=== PATIENT | male | born 1960 | race Caucasian/White ===

== ENCOUNTER → 2016-06-21 | Outpatient (CLI) | payer OTHER ==
[~2016-06-21] MED LIST: ACYC400T PO; LIOT5TAB9 PO
--- NOTE | 2016-06-23 10:47 | DI ---
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 Iterative Reconstruction dose reducing technique was utilized. FINDINGS: The ventricles are of normal size, shape, and contour for the patient's age. There are scattered areas of low attenuation in the white matter which most likely represent changes from chronic microvascular ischemia. The brainstem, cerebellum, and cerebral hemispheres otherwise have a normal morphology and CT attenuation. There is no evidence of midline displacement. No hemorrhage, signs of acute territorial stroke, mass effect, mass lesions, or edema is evident. Stable subcutaneous masses in the left occipital region. The visualized portions of the skull base, midface, and calvarium demonstrate no acute abnormality. The paranasal sinuses are well aerated and free of significant disease. The tympanic and mastoid cavities appear normal. IMPRESSION: No evidence of intracranial metastatic disease. No interval change. CT neck, chest, abdomen and pelvis without: Comparison: CT neck, chest, abdomen and pelvis dated March 27, 2016 Technique: Axial CT images were performed through the neck, chest, abdomen and pelvis without intravenous contrast. Coronal and sagittal two-dimensional reformats. Automated Exposure Control and Iterative Reconstruction dose reducing techniques were utilized. Findings: Neck: Stable subcutaneous masses in the left occipital region, the largest on image #273 measures 2.8 cm in length. Right cervical adenopathy is stable with a patient registration representative node on image #248 measuring 2.1 cm in short axis compared to 2.2 cm previously. Additional scattered bilateral cervical nodes are grossly stable. Large right submandibular area mass is similar in appearance on axial image #245 measuring 2.1 cm in short axis. Left supraclavicular adenopathy is improved with a patient registration representative node on image #221 now measuring 1.3 cm in short axis dimension compared to 2.2 cm. No definite new or enlarging adenopathy. No mucosal based mass lesions. Chest: The lungs are stable with areas of linear atelectasis and scarring. No consolidative pneumonia, pleural effusion or pneumothorax. No new pulmonary nodules or masses. The central airways are patent. No axillary adenopathy. Stable paratracheal and right hilar adenopathy is stable posterior mediastinal adenopathy. Heart size is stable. No pericardial effusion. Abdomen/pelvis: Worsening in retroperitoneal adenopathy with the largest node on axial image #133 measuring 3.8 cm in short axis compared to 2.6 cm. Additional patient registration representative node on image #119 and the left retroperitoneum measures 2.6 cm in short axis, stable from the prior. The unenhanced contours of the liver, gallbladder, spleen, pancreas, adrenal glands and kidneys are stable. Overall stable mesenteric lymphadenopathy. The largest node on axial image #84 measures 4.2 x 3.3 cm compared to 4.3 x 3.3 cm on the prior exam. There is evidence of a lesion within the small bowel seen on axial image 113 involving a segment of approximately seven cm in length without causing obstruction. This is new from the prior exam. Largest node at the aortic bifurcation has increased in size on axial image #993 measuring 3.9 x 5.1 cm, this is increased from 4.5 x 3.2 cm. Bladder is normal. Prostate and rectum are unremarkable. Colon is decompressed. No evidence of a bowel obstruction. There is an additional new area of small bowel lymphomatous involvement seen in the left abdomen best seen on coronal image #43. This involves a segment of over 5 cm in length without obstruction. Bone windows are stable without lytic or blastic osseous lesion. Impression: 1. Worsening disease status in the abdomen with enlarging retroperitoneal adenopathy and new areas of small bowel involvement. 2. Overall stable disease in the chest and neck. .
== END ==
LOC: IMA 15:14
PROVIDERS: ATTEND Internal Medicine Hematology & Oncology
DX: C82.08 Follicular lymphoma grade I, lymph nodes of multiple sites (principal); D83.0 Common variable immunodeficiency with predominant abnormalities of B-cell numbers and function

== ENCOUNTER 2016-08-10 11:44 | Inpatient (IN) | payer OTHER ==
[~2016-08-10] VITALS: Ht 172.7 cm; Wt 95.6 kg
--- OUTSIDE RECORDS SUMMARY | 2016-08-10 11:48 | XMS REPORT | Continuity of Care Document ---
Author Author [facility] Organization [facility] Address Unknown Phone Unavailable Support Name Relationship Address Phone KEVIN HARP Caregiver [address] [place] & [place] [address] Unavailable RHODA TAPIA Caregiver [phone] [place] [address] Unavailable MYLENERegina RAFIA Nicky Next Of Kin [address] [place] [address] Insurance Providers Guarantor Sukhwinder Brown Address [address] [address] Email [email or web address] Payer [facility] Healthcare Policy Number [id number] Subscriber's Name JovanySukhwinder conrad Sacha Relationship 18 Self Group Number [id number] Problems Active Problems Medical Problem Onset Date Status Abdominal pain Unknown Acute Bacteremia associated with IV line Unknown Acute Follicular lymphoma Unknown Chronic Mild valvular heart disease Unknown Chronic Steroid-induced hyperglycemia Unknown Acute Vascular catheter infection Unknown Resolved Past Problems Medical Problem Onset Date Headache Unknown Medications Current Home Medications Medication Dose Units Route Directions Days Qty Instructions Start Date Acyclovir 400 Mg Tablet 1 Tab Oral Twice A Day 10/31/14 Liothyronine Sodium 5 Mcg Tablet 1 Tab Oral Daily 10/20/14 Past Home Medications Medication Directions Ordered Status Allopurinol 300 Mg Tablet, 1 Tab Oral Daily 10/31/14 Discontinued Aspirin 325 Mg Tablet, 325 Mg Oral 2 Tabs D 05/25/09 Discontinued Ciprofloxacin Hcl (Cipro) 500 Mg Tablet, 500 Mg Oral Every 12 Hours 11/01/14 Discontinued Dexamethasone 4 Mg Tablet, 1 Tab Oral Twice A Day 11/21/14 Discontinued Famotidine 20 Mg Tablet, 1 Tab Oral Daily 11/21/14 Discontinued Milk Thistle Seed Extract (Milk Thistle) 140 Mg Capsule, 3 Cap Oral Daily Discontinued Multivitamin (Daily Vitamin) 1 Each Tablet, Oral Daily 11/22/14 Discontinued [place]-3 Fatty Acids (Fish Oil) 500 Mg Capsule, 1 Tab Oral Daily 10/20/14 Discontinued Prasterone (Dhea) (Dhea) 25 Mg Tablet, 1 Tab Oral Daily 10/20/14 Discontinued Testosterone 100 Mg/Ml Vial, 100 Mg Intramusc Every 3 Weeks 05/05/08 Discontinued Social History Social History Problem Response Recorded Date/Time Onset Date Status Chewing Tobacco Status No 05/04/2012 4:27pm Not Applicable Not Applicable Hx Substance Use No 12/13/2015 10:44pm Not Applicable Not Applicable Hx Alcohol Use No 12/13/2015 10:44pm Not Applicable Not Applicable Has the pt used tobacco in the last 12 months No 11/21/2014 11:25am Not Applicable Not Applicable Tobacco Usage none 11/11/2014 3:40pm Not Applicable Not Applicable Hospital Discharge Instructions Current inpatient/outpatient. Discharge instructions are currently unavailable. Plan of Care Current inpatient/outpatient. The plan of care is currently unavailable Functional Status No functional status results. Allergies, Adverse Reactions, Alerts Allergen Type Severity Reaction Status Last Updated Doxycycline Allergy Mild ITCHY Active 12/13/15 Levofloxacin Allergy Intermediate DIZZINESS Active 12/13/15 Immunizations Query Response on File Recorded Date/Time Hx Influenza Vaccination No 11/21/14 11:25am Hx Pneumococcal Vaccination No 11/21/14 11:25am Hx Influenza Vaccination No 11/21/14 11:25am Vital Signs No known vital signs results. Results Laboratory Results Test Name Result Units Flags Reference Collection Date/Time Result Date/ Time Comments White Blood Count 5.8 T/MM3 4.5-11.0 03/08/2016 8:45am 03/08/2016 9: 01am Red Blood Count 5.39 M/MM3 4.50-5.90 03/08/2016 8:45am 03/08/2016 9: 01am Hemoglobin 15.7 GM/DL 13.5-17.5 03/08/2016 8:45am 03/08/2016 9:01am Hematocrit 44.0 % 41-53 03/08/2016 8:45am 03/08/2016 9:01am Mean Corpuscular Volume 81.6 UM3 80-100 03/08/2016 8:45am 03/08/2016 9: 01am Mean Corpuscular Hemoglobin 29.1 UUG 26-34 03/08/2016 8:45am 2015 9:01am Mean Corpuscular Hemoglobin Concent 35.7 GM/DL 31-37 03/08/2016 8:45am 03/08/2016 9:01am RDW Standard Deviation 37.0 FL 36.9-50.2 03/08/2016 8:45am 03/08/2016 9 :01am Platelet Count 241 T/MM3 130-400 03/08/2016 8:45am 03/08/2016 9:01am Mean Platelet Volume 9.2 UM3 L 9.4-12.4 03/08/2016 8:45am 03/08/2016 9: 01am Neutrophils (%) (Auto) 60.0 % 33-66 03/08/2016 8:45am 03/08/2016 9: 01am Lymphocytes (%) (Auto) 24.6 % 23-45 03/08/2016 8:45am 03/08/2016 9: 01am Monocytes (%) (Auto) 7.4 % 0-9.0 03/08/2016 8:45am 03/08/2016 9:01am Eosinophils (%) (Auto) 7.2 % H 0-4 03/08/2016 8:45am 03/08/2016 9:01am Basophils (%) (Auto) 0.5 % 0-2 03/08/2016 8:45am 03/08/2016 9:01am Immature Granulocyte % (Auto) 0.3 % 0.0-0.5 03/08/2016 8:45am 2015 9:01am Absolute Neutrophils (auto) 3.5 T/MM3 1.8-7.7 03/08/2016 8:45am 2015 9:01am Absolute Lymphocytes (auto) 1.4 T/MM3 1-4.8 03/08/2016 8:45am 2015 9:01am Absolute Monocytes (auto) 0.4 T/MM3 0-0.8 03/08/2016 8:45am 03/08/2016 9:01am Absolute Eosinophils (auto) 0.4 T/MM3 0-0.5 03/08/2016 8:45am 2015 9:01am Absolute Basophils (auto) 0.0 T/MM3 0-0.2 03/08/2016 8:45am 03/08/2016 9:01am Absolute Immature Granulocyte (auto 0.02 T/MM3 0.00-0.03 03/08/2016 8: 45am 03/08/2016 9:01am Icterus Index < 2 0-7 03/08/2016 8:45am 03/08/2016 9:10am Chemistry Specimen Hemolysis < 15 0-25 03/08/2016 8:45am 03/08/2016 9 :10am 0-25: Specimen Exhibited No Hemolysis. Turbidity < 20 0-20 03/08/2016 8:45am 03/08/2016 9:10am Sodium Level 145 MEQ/L H 134-144 03/08/2016 8:45am 03/08/2016 9:10am Potassium Level 4.2 MEQ/L 3.6-5 03/08/2016 8:45am 03/08/2016 9:10am Chloride Level 106 MEQ/L 98-107 03/08/2016 8:45am 03/08/2016 9:10am Carbon Dioxide Level 26 MEQ/L 22-30 03/08/2016 8:45am 03/08/2016 9: 10am Anion Gap 13 MEQ/L 5-15 03/08/2016 8:45am 03/08/2016 9:10am Blood Urea Nitrogen 21.0 MG/DL H 9-20 03/08/2016 8:45am 03/08/2016 9: 10am Creatinine 1.0 MG/DL 0.8-1.5 03/08/2016 8:45am 03/08/2016 9:10am BUN/Creatinine Ratio 21 RATIO 6-26 03/08/2016 8:45am 03/08/2016 9:10am Glomerular Filtration Rate Calc 77 03/08/2016 8:45am 03/08/2016 9: 10am Glucose Level 114 MG/DL H 75-110 03/08/2016 8:45am 03/08/2016 9:10am Calculated Osmolality 283 MOSM/KG H 261-280 03/08/2016 8:45am 2015 9:10am Calcium Level 9.4 MG/DL 8.4-10.2 03/08/2016 8:45am 03/08/2016 9:10am Total Bilirubin 0.60 MG/DL 0.20-1.30 03/08/2016 8:45am 03/08/2016 9: 10am Alkaline Phosphatase 64 U/L 38-126 03/08/2016 8:45am 03/08/2016 9:10am Total Protein 6.9 G/DL 6.3-8.2 03/08/2016 8:45am 03/08/2016 9:10am Albumin 4.5 G/DL 3.5-5.0 03/08/2016 8:45am 03/08/2016 9:10am Globulin 2.4 G/DL 2.4-3.6 03/08/2016 8:45am 03/08/2016 9:10am Albumin/Globulin Ratio 1.9 RATIO 1.1-2.2 03/08/2016 8:45am 03/08/2016 9 :10am Aspartate Amino Transf (AST/SGOT) 20 U/L 17-59 03/08/2016 8:45am 2015 9:10am Alanine Aminotransferase (ALT/SGPT) 31 U/L 21-72 03/08/2016 8:45am 11/2015 9:10am Lactate Dehydrogenase 436 U/L 313-618 03/08/2016 8:45am 03/08/2016 9: 10am Magnesium Level 2.1 MG/DL 1.6-2.3 03/08/2016 8:45am 03/08/2016 9:10am Uric Acid 7.6 MG/DL 3.5-8.5 11/17/2015 9:10am 11/17/2015 10:03am Immunoglobulin G 389.01 MG/DL L 700-1600 03/08/2016 8:45am 03/08/2016 9: 18am Immunoglobulin A < 40.00 MG/DL L 70-400 03/08/2016 8:45am 03/08/2016 9: 18am Immunoglobulin M < 25.00 MG/DL L 40-230 03/08/2016 8:45am 03/08/2016 9: 18am Serum Total Protein 5.9 g/dL L 6.1-7.7 02/09/2016 8:40am 02/09/2016 2: 06pm Immunoelectrophoresis, no IMQ performed at [facility], [address] [place] [id number] Hardware Sales Assistant Bradford Toro DO Albumin (PEP) 4.2 g/dL 2.6-4.5 02/09/2016 8:40am 02/12/2016 2:25pm Aefhj-0-Fitgebapg 0.3 g/dL 0.3-0.5 02/09/2016 8:40am 02/12/2016 2:25pm Uouxk-7-Dqxtvqikp 0.5 g/dL L 0.6-1.2 02/09/2016 8:40am 02/12/2016 2: 25pm Zkjf-8-Vqznsozt 0.4 g/dL 0.4-0.6 02/09/2016 8:40am 02/12/2016 2:25pm Ycku-4-Qwlusjzi 0.2 g/dL 0.2-0.5 02/09/2016 8:40am 02/12/2016 2:25pm Gamma Globulins 0.3 g/dL L 0.4-1.7 02/09/2016 8:40am 02/12/2016 2:25pm Albumin % (PEP) 71.1 % H 48.7-61.8 02/09/2016 8:40am 02/12/2016 2:25pm Nmtym-3-Mrlygetlk (%) 4.9 % 3.4-8.3 02/09/2016 8:40am 02/12/2016 2: 25pm Sukvy-6-Mwrhpxgfy (%) 9.0 % 8.4-17.5 02/09/2016 8:40am 02/12/2016 2: 25pm Icji-0-Ejefzlzf (%) 6.1 % 5.4-8.9 02/09/2016 8:40am 02/12/2016 2:25pm Nmwl-0-Mnlnwxhk (%) 3.1 % L 3.8-7.7 02/09/2016 8:40am 02/12/2016 2:25pm Gamma Globulins (%) 5.8 % L 8.1-23.0 02/09/2016 8:40am 02/12/2016 2: 25pm Immunoelectrophoresis, no IMQ performed at [facility], [facility] [place] [address] Hardware Sales Assistant Bradford Toro DO Protein Electrophoresis Comment - 02/09/2016 8:40am 02/12/2016 2: 25pm Decreased gammaglobulin. No monoclonal peaks or restricted areas observed by immunofixation. Free [place]/Lambda Light Chain Ratio 1.51 02/09/2016 8:40am 2015 3:18pm Reference Range: 0.2600-1.65 Test Performed by: [place] [address] Biofuels Product Manager: Chavo De Paz II, M.D., Ph.D. Immunoglobulin Free Light Chains, [place] [address] Hardware Sales Assistant Baldev Marquis MD Free Dinuba Light Chains 0.9630 mg/dL 02/09/2016 8:40am 02/10/2016 3: 18pm Reference Range: 0.3300-1.94 Free Lambda Light Chains 0.6380 mg/dL () 02/09/2016 8:40am 02/10/2016 3 :18pm Reference Range: 0.5700-2.63 Test Performed by: [place] [address] [employer]fuels Product Manager: Chavo De Paz II, M.D., Ph.D. Immunoglobulin Free Light Chains, Serum performed at [facility], [address] [place] [address] Hardware Sales Assistant Baldev Marquis MD Reference Range: 0.5700-2.63 --- 02/10/16 1518 --- IFLCLA previously reported as: 0.6380 mg/dL Reference Range: 0.5700-2.63 Test Performed by: [place] [address] [employer]fuels Product Manager: Chavo De Paz II, M.D., Ph.D. Immunoglobulin Free Light Chains, [place] [address] Hardware Sales Assistant Baldev Marquis MD Name: SUKHWINDER BROWN Unit #: [id number] : 1960 Sex: M Admit Date: Loc / Svc: LIZANDRO Discharge Date: DIAGNOSTIC IMAGING REPORT Report #: [id number] [facility] ALBERTO Bloom Indication: ITS.REASON: C82.08 Follicular lymphoma grade I, lymph nodes of multipl; D83.0 PROCEDURE: CT NECK/CHEST/ABD/PELVIS W/O: Encounter: Subsequent Comparison: CT neck, chest, abdomen and pelvis dated January 05, 2016 Technique: Axial noncontrast CT imaging through the neck, chest, abdomen and pelvis was performed without contrast. Coronal and sagittal two-dimensional reformats. Findings: Neck: Enlarged right level two lymph node is stable at 2.3 cm in short axis on image #55. No interval change in right level 1B lymph nodes. Stable left cervical level 2A and 2B lymph nodes. No definite new or enlarging lymphadenopathy seen in the neck. Evaluation is somewhat limited without IV contrast. No obvious mucosal based mass lesion. Soft tissue prominence in the left occipital region is unchanged with a lipoma also present here. Chest: Left-sided supraclavicular and infraclavicular adenopathy is unchanged. Outsole Splicer node on image #29 measures 2.2 cm in short axis. Right paratracheal and prevascular lymph nodes are also stable. Stable right hilar adenopathy. No axillary adenopathy. Retrocrural lymph nodes remain unchanged. Heart size is stable. No pericardial effusion. Lungs are unchanged without new or enlarging pulmonary nodule. No pneumonia, pleural effusion or pneumothorax. Central airways are patent. Abdomen/pelvis: The unenhanced contours of the liver, gallbladder, spleen, pancreas and left adrenal gland are normal. Calcified right adrenal nodule. Kidneys are unchanged. Stranding and lymphadenopathy in the mesentery is grossly stable. An enlarged lymph node adjacent to the celiac axis appears slightly larger now measuring 2.5 cm in short axis on image #63 compared to 2 cm previously. Additional left retroperitoneal lymph node on image #71 now measures 2.7 cm in short axis compared to 2.7 cm previously. Mesenteric mass seen on image #91 measures 4.3 x 3.3 cm, slightly smaller than the comparison. Bladder is unremarkable. No evidence of a bowel obstruction. Bone windows are stable. Impression: Overall stability in multifocal adenopathy without significant improvement or worsening. . Procedures Procedure Status Date Provider(s) CT SOFT TISSUE NECK W/DYE Completed 01/05/16 CT THORAX W/DYE Completed 01/05/16 CT ABD & PELV W/CONTRAST Completed 01/05/16"INJECTION, HEPARIN SODIUM, (HEPARIN LOCK FLUSH), PER Completed "INFUSION, NORMAL SALINE SOLUTION , 250 CC" Completed 01/05/16"LOW OSMOLAR CONTRAST MATERIAL, 300-399 MG/ML IODINE C Completed "LOW OSMOLAR CONTRAST MATERIAL, 300-399 MG/ML IODINE C Completed Encounters Encounter Location Arrival/Admit Date Discharge/Depart Date Attending Provider Registered [facility] 03/27/16 9:01am RHODA TAPIA Discharged [facility] 03/08/16 8:57am 03/30/16 11:15pm RHODA TAPIA Registered [facility] 03/08/16 8:16am RHODA TAPIA Registered [facility] 01/05/16 9:21am RHODA TAPIA
--- OUTSIDE RECORDS SUMMARY | 2016-08-10 11:48 | XMS REPORT | Continuity of Care Document ---
Author Author [facility] Organization [facility] Address Unknown Phone Unavailable Support Name Relationship Address Phone KEVIN HARP Caregiver [address] [place] & [place] [address] Unavailable RHODA TAPIA Caregiver [address] [place] [address] Unavailable MYLENERegina RAFIA Nicky Next Of Kin [address] [place] [address] Insurance Providers Guarantor Sukhwinder Brown Address [address], [place] [address] Email [email or web address] Payer [facility] Policy Number [id number] Subscriber's Name JovanySukhwinder conrad Sacha Relationship 18 Self Group Number [id number] Problems Active Problems Medical Problem Onset Date [...] 1 Each Tablet, Oral Daily 11/22/14 Discontinued [place]-3 Fatty Acids (Fish Oil) 500 Mg Capsule, [...] 2: 06pm Immunoelectrophoresis, no IMQ performed at [facility], [address] [place] [address] Professor Of Apologetics Bradford Toro DO Albumin (PEP) 4.2 g/dL 2.6-4.5 02/09/2016 8:40am 02/12/2016 2:25pm Aapin-0-Wjbwflvce 0.3 g/dL 0.3-0.5 02/09/2016 8:40am 02/12/2016 2:25pm Rmpuv-1-Lhxohtxxd 0.5 g/dL L 0.6-1.2 02/09/2016 8:40am 02/12/2016 2: 25pm Npwr-2-Cmkmwokt 0.4 g/dL 0.4-0.6 02/09/2016 8:40am 02/12/2016 2:25pm Nnxo-1-Mknnofac 0.2 g/dL 0.2-0.5 02/09/2016 8:40am 02/12/2016 2:25pm Gamma Globulins 0.3 g/dL L 0.4-1.7 02/09/2016 8:40am 02/12/2016 2:25pm Albumin % (PEP) 71.1 % H 48.7-61.8 02/09/2016 8:40am 02/12/2016 2:25pm Ujgkb-5-Ehqjytorc (%) 4.9 % 3.4-8.3 02/09/2016 8:40am 02/12/2016 2: 25pm Rievu-2-Dhintbxnc (%) 9.0 % 8.4-17.5 02/09/2016 8:40am 02/12/2016 2: 25pm Pvxn-8-Icwoovdf (%) 6.1 % 5.4-8.9 02/09/2016 8:40am 02/12/2016 2:25pm Pirs-3-Yjwfihsc (%) 3.1 % L 3.8-7.7 02/09/2016 8:40am 02/12/2016 2:25pm Gamma Globulins (%) 5.8 % L 8.1-23.0 02/09/2016 8:40am 02/12/2016 2: 25pm Immunoelectrophoresis, no IMQ performed at [facility], [facility] [place] [address] Professor Of Apologetics Bradford Toro DO Protein Electrophoresis Comment - 02/09/2016 8:40am 02/12/2016 2: 25pm Decreased gammaglobulin. No monoclonal peaks or restricted areas observed by immunofixation. Free [place]/Lambda Light Chain Ratio 1.51 02/09/2016 8:40am 2015 3:18pm Reference Range: 0.2600-1.65 Test Performed by: [place] [address] Quilter Fixer: Chavo De Paz II, M.D., Ph.D. Immunoglobulin Free Light Chains, [place] [address] Professor Of Apologetics Baldev Marquis MD Free [place] Light Chains 0.9630 mg/dL 02/09/2016 8:40am 02/10/2016 3: 18pm Reference Range: 0.3300-1.94 Free Lambda Light Chains 0.6380 mg/dL () 02/09/2016 8:40am 02/10/2016 3 :18pm Reference Range: 0.5700-2.63 Test Performed by: [place] [address] Quilter Fixer: Chavo De Paz II, M.D., Ph.D. Immunoglobulin Free Light Chains, Serum performed at [facility], [address] [place] [address] Professor Of Apologetics Baldev Marquis MD Reference Range: 0.5700-2.63 --- 02/10/16 1518 --- IFLCLA previously reported as: 0.6380 mg/dL Reference Range: 0.5700-2.63 Test Performed by: [place] [address] Quilter Fixer: Chavo De Paz II, M.D., Ph.D. Immunoglobulin Free Light Chains, [place] [address] Professor Of Apologetics Baldev Marquis MD Name: SUKHWINDER BROWN Unit #: [id number] : 1960 Sex: M Admit Date: Loc / Svc: LIZANDRO Discharge Date: DIAGNOSTIC IMAGING REPORT Report #: [id number] [facility] AL[facility]ERTO Bloom Indication: ITS.REASON: C82.08 Follicular [...] Left-sided supraclavicular and infraclavicular adenopathy is unchanged. Machine Etcher node on image #29 measures 2.2 cm [...] Arrival/Admit Date Discharge/Depart Date Attending Provider Registered [facility] 03/27/16 9:01am RHODA TAPIA Discharged [facility] 03/08/16 8:57am 03/30/16 11:15pm RHODA TAPIA Discharged [facility] 03/08/16 8:16am 03/30/16 11:47pm RHODA TAPIA Registered [facility] 01/05/16 9:21am RHODA TAPIA
--- OUTSIDE RECORDS SUMMARY | 2016-08-10 11:48 | XMS REPORT | Continuity of Care Document ---
Author Author [facility] Organization [facility] Address Unknown Phone Unavailable Support Name Relationship Address Phone KEVIN HARP Caregiver [address] & [place] [address] Unavailable KATRINA OBRIEN MD Caregiver [address] [place] [address] [place] [address] Unavailable RAFIA BROWN Next Of Kin [address] [place] [address] Insurance Providers Guarantor Martina Brown Address [address] [place] [phone] Email .[employer] Payer [facility] Policy Number [id number] Subscriber's Name JovanyMartina conrad Sacha Relationship 18 Self Group Number [id number] Chief Complaint and Reason for Visit Chief Complaint Headache Reason for Visit Headache Problems Active Problems Medical Problem Onset Date [...] 1 Each Tablet, Oral Daily 11/22/14 Discontinued [place]-3 Fatty Acids (Fish Oil) 500 Mg Capsule, [...] none 11/11/2014 3:40pm Not Applicable Not Applicable Query Response Start Date Stop Date Smoking Status Never smoker Hospital Discharge Instructions No hospital discharge instructions. Plan of Care Discharge Date 12/14/15 12:43am Disposition 01 DISCHARGED HOME, SELF-CARE Condition at Discharge Improved Instructions/Education Provided DI for Headache Prescriptions See Medication Section Referrals KEVIN HARP Address: [address] [place] [address] [place] [address] Additional Instructions/Education Your labs were normal except for mild dehydration. No acute finding on CT scan of head. Rest in dark room. Stay hydrated, drink 2-3 quarts of water daily. Keep a headache diary (onset of headache, any triggers, symptom, time, intensity). May take OTC Mucinex to thin sinus drainage as needed. Follow with your PCP for re-evaluation as needed. Care Plan and Goals Physician Care Plan Problem: Headache Goal: Follow up with primary care provider Instructions: Take medications and follow care plan as discussed/written Functional Status No functional status results. Allergies, Adverse Reactions, Alerts Allergen Type Severity Reaction Status Last Updated Doxycycline Allergy Mild ITCHY Active 12/13/15 Levofloxacin Allergy Intermediate DIZZINESS Active 12/13/15 Immunizations Query Response on File Recorded Date/Time Hx Influenza Vaccination No 11/21/14 11:25am Hx Pneumococcal Vaccination No 11/21/14 11:25am Hx Influenza Vaccination No 11/21/14 11:25am Vital Signs Acute Vital Signs Vital Response Date/Time Temperature (Fahrenheit) 97.7 deg F (96.8 - 99.1) 12/13/2015 10:39pm Temperature (Calculated Celsius) 36.28710 degrees C (36.0 - 37.3) 12/13/2015 10:39pm Pulse Rate (adult) 57 bpm (60 - 100) 12/14/2015 12:43am Respiratory Rate 16 breaths/min (10 - 20) 12/14/2015 12:43am O2 Sat by Pulse Oximetry 98 % (90 - 100) 12/14/2015 12:43am Blood Pressure 126/73 mm Hg 12/14/2015 12:43am Height (Feet) 5 feet 12/13/2015 10:39pm Height (Inches) 7.00 inches 12/13/2015 10:39pm Weight (Kilograms) 90.100 kg 12/13/2015 10:39pm Body Mass Index (BMI) 31.0 12/13/2015 10:39pm Results Laboratory Results Test Name Result Units Flags Reference Collection Date/Time Result Date/ Time Comments Immunoglobulin G 460.84 MG/DL L 700-1600 07/28/2015 8:05am 07/28/2015 8: 47am Immunoglobulin A < 40.00 MG/DL L 70-400 07/28/2015 8:05am 07/28/2015 8: 47am Immunoglobulin M < 25.00 MG/DL L 40-230 07/28/2015 8:05am 07/28/2015 8: 47am Kofw-2-Sowonfgnvsjxr 2.43 mcg/mL () 07/28/2015 8:05am 07/29/2015 12: 28pm Reference Range: 1.21 - 2.70 Test Performed by: [place] [address] Field Service Tech: Chavo De Paz II, M.D., Ph.D. Beta-2 Microglobulin, S performed at [facility], [address] [place] [address] Shade Classifier Baldev Marquis MD Serum Total Protein 5.6 g/dL L 6.4-8.3 07/28/2015 8:05am 07/28/2015 3: 54pm Immunoelectrophoresis, no IMQ performed at [facility] Reference Lab, [address] [place] [address] Shade Classifier Bradford Toro DO Albumin (PEP) 4.1 g/dL 2.6-4.5 07/28/2015 8:07/31/2015 1:17pm Grecn-7-Uycbnzidu 0.2 g/dL L 0.3-0.5 07/28/2015 8:07/31/2015 1: 17pm Romcy-2-Yvxiiumhe 0.4 g/dL L 0.6-1.2 07/28/2015 8:07/31/2015 1: 17pm Bnsu-9-Teznogsd 0.3 g/dL L 0.4-0.6 07/28/2015 8:07/31/2015 1:17pm Erxd-3-Binuqybz 0.2 g/dL 0.2-0.5 07/28/2015 8:07/31/2015 1:17pm Gamma Globulins 0.4 g/dL 0.4-1.7 07/28/2015 8:07/31/2015 1:17pm Albumin % (PEP) 72.4 % H 48.7-61.8 07/28/2015 8:07/31/2015 1:17pm Obsbt-3-Ibjpjvstu (%) 4.3 % 3.4-8.3 07/28/2015 8:07/31/2015 1: 17pm Onayt-0-Lmqswifro (%) 7.6 % L 8.4-17.5 07/28/2015 8:07/31/2015 1: 17pm Kpha-0-Aslyefdn (%) 5.3 % L 5.4-8.9 07/28/2015 8:07/31/2015 1:17pm Llat-1-Kjozyyip (%) 2.9 % L 3.8-7.7 07/28/2015 8:07/31/2015 1:17pm Gamma Globulins (%) 7.5 % L 8.1-23.0 07/28/2015 8:07/31/2015 1: 17pm Immunoelectrophoresis, no IMQ performed at [facility] Reference Lab, [address] [place] [address] Shade Classifier Bradford Toro, DO Protein Electrophoresis Comment - () 07/28/2015 8:07/31/2015 1: 17pm Hyperalbuminemia No monoclonal peaks or restricted areas observed by immunofixation. Free [place]/Lambda Light Chain Ratio 1.16 () 07/28/2015 8:05am 2015 12:38pm Reference Range: 0.2600-1.65 Test Performed by: [place] [address] Field Service Tech: Chavo De Paz II, M.D., Ph.D. Immunoglobulin Free Light Chains, Serum performed at [facility], [address] [place] [address] Shade Classifier Baldev Marquis MD Free [place] Light Chains 0.6340 mg/dL () 07/28/2015 8:05am 07/29/2015 12 :38pm Reference Range: 0.3300-1.94 Free Lambda Light Chains 0.5470 mg/dL L () 07/28/2015 8:05am 07/29/2015 12:38pm Reference Range: 0.5700-2.63 Free Thyroxine 1.18 NG/DL 0.78-2.19 10/23/2015 4:19pm 10/23/2015 5: 47pm Thyroid Stimulating Hormone (TSH) 2.31 MIU/L 0.47-4.68 10/23/2015 4: 19pm 10/23/2015 5:05pm Erythrocyte Sedimentation Rate 2 mm/h 0-15 10/23/2015 4:19pm 2015 11:10pm Sedimentation Rate performed at [facility] Reference Lab, [address] [place] [address] Shade Classifier Bradford Toro DO West Nile Virus IgG Antibody Negative Negative 10/23/2015 4:19pm 3:46pm West Nile Virus IgM Antibody Negative Negative 10/23/2015 4:19pm 3:46pm West Nile Virus Interpretation SEE BELOW 10/23/2015 4:19pm 2015 3:46pm No antibodies to WNV detected. Repeat testing in 10-14 days if clinical suspicion persists. Test Performed by: [place] [address] Field Service Tech: Chavo De Paz II, M.D., Ph.D. West Nile Virus Antibody IgG and IgM, [place] [address] Shade Classifier Baldev Marquis MD Lactate Dehydrogenase 391 U/L 313-618 11/17/2015 9:10am 11/17/2015 9: 45am Magnesium Level 2.0 MG/DL 1.6-2.3 11/17/2015 9:10am 11/17/2015 9:45am Uric Acid 7.6 MG/DL 3.5-8.5 11/17/2015 9:10am 11/17/2015 10:03am White Blood Count 9.1 T/MM3 4.5-11.0 12/13/2015 11:02pm 12/13/2015 11: 11pm Red Blood Count 5.17 M/MM3 4.50-5.90 12/13/2015 11:02pm 12/13/2015 11: 11pm Hemoglobin 15.1 GM/DL 13.5-17.5 12/13/2015 11:02pm 12/13/2015 11:11pm Hematocrit 42.4 % 41-53 12/13/2015 11:02pm 12/13/2015 11:11pm Mean Corpuscular Volume 82.0 UM3 80-100 12/13/2015 11:02pm 12/13/2015 11:11pm Mean Corpuscular Hemoglobin 29.2 UUG 26-34 12/13/2015 11:02pm 2015 11:11pm Mean Corpuscular Hemoglobin Concent 35.6 GM/DL 31-37 12/13/2015 11:02pm 12/13/2015 11:11pm RDW Standard Deviation 37.9 FL 36.9-50.2 12/13/2015 11:02pm 12/13/2015 11:11pm Platelet Count 229 T/MM3 130-400 12/13/2015 11:02pm 12/13/2015 11:11pm Mean Platelet Volume 9.3 UM3 L 9.4-12.4 12/13/2015 11:02pm 12/13/2015 11 :11pm Neutrophils (%) (Auto) 73.6 % H 33-66 12/13/2015 11:02pm 12/13/2015 11: 11pm Lymphocytes (%) (Auto) 17.1 % L 23-45 12/13/2015 11:02pm 12/13/2015 11: 11pm Monocytes (%) (Auto) 6.1 % 0-9.0 12/13/2015 11:02pm 12/13/2015 11:11pm Eosinophils (%) (Auto) 2.6 % 0-4 12/13/2015 11:02pm 12/13/2015 11:11pm Basophils (%) (Auto) 0.3 % 0-2 12/13/2015 11:02pm 12/13/2015 11:11pm Immature Granulocyte % (Auto) 0.3 % 0.0-0.5 12/13/2015 11:02pm 2015 11:11pm Absolute Neutrophils (auto) 6.7 T/MM3 1.8-7.7 12/13/2015 11:02pm 2015 11:11pm Absolute Lymphocytes (auto) 1.6 T/MM3 1-4.8 12/13/2015 11:02pm 2015 11:11pm Absolute Monocytes (auto) 0.6 T/MM3 0-0.8 12/13/2015 11:02pm 2015 11:11pm Absolute Eosinophils (auto) 0.2 T/MM3 0-0.5 12/13/2015 11:02pm 2015 11:11pm Absolute Basophils (auto) 0.0 T/MM3 0-0.2 12/13/2015 11:02pm 2015 11:11pm Absolute Immature Granulocyte (auto 0.03 T/MM3 0.00-0.03 12/13/2015 11: 02pm 12/13/2015 11:11pm Icterus Index < 2 0-7 12/13/2015 11:02pm 12/13/2015 11:27pm Chemistry Specimen Hemolysis < 15 0-25 12/13/2015 11:02pm 12/13/2015 11:27pm 0-25: Specimen Exhibited No Hemolysis. Turbidity < 20 0-20 12/13/2015 11:02pm 12/13/2015 11:27pm Sodium Level 146 MEQ/L H 134-144 12/13/2015 11:02pm 12/13/2015 11:27pm Potassium Level 3.6 MEQ/L 3.6-5 12/13/2015 11:02pm 12/13/2015 11:27pm Chloride Level 106 MEQ/L 98-107 12/13/2015 11:02pm 12/13/2015 11:27pm Carbon Dioxide Level 27 MEQ/L 22-30 12/13/2015 11:02pm 12/13/2015 11: 27pm Anion Gap 13 MEQ/L 5-15 12/13/2015 11:02pm 12/13/2015 11:27pm Blood Urea Nitrogen 23.0 MG/DL H 9-20 12/13/2015 11:02pm 12/13/2015 11: 27pm Creatinine 1.0 MG/DL 0.8-1.5 12/13/2015 11:02pm 12/13/2015 11:27pm BUN/Creatinine Ratio 23 RATIO 6-26 12/13/2015 11:02pm 12/13/2015 11: 27pm Glomerular Filtration Rate Calc 77 12/13/2015 11:02pm 12/13/2015 11 :27pm Glucose Level 117 MG/DL H 75-110 12/13/2015 11:02pm 12/13/2015 11:27pm Calculated Osmolality 286 MOSM/KG H 261-280 12/13/2015 11:02pm 2015 11:27pm Calcium Level 9.5 MG/DL 8.4-10.2 12/13/2015 11:02pm 12/13/2015 11:27pm Total Bilirubin 0.40 MG/DL 0.20-1.30 12/13/2015 11:02pm 12/13/2015 11: 27pm Alkaline Phosphatase 70 U/L 38-126 12/13/2015 11:02pm 12/13/2015 11: 27pm Total Protein 6.5 G/DL 6.3-8.2 12/13/2015 11:02pm 12/13/2015 11:27pm Albumin 4.4 G/DL 3.5-5.0 12/13/2015 11:02pm 12/13/2015 11:27pm Globulin 2.1 G/DL L 2.4-3.6 12/13/2015 11:02pm 12/13/2015 11:27pm Albumin/Globulin Ratio 2.1 RATIO 1.1-2.2 12/13/2015 11:02pm 12/13/2015 11:27pm Aspartate Amino Transf (AST/SGOT) 21 U/L 17-59 12/13/2015 11:02pm 12/12 11:27pm Alanine Aminotransferase (ALT/SGPT) 34 U/L 21-72 12/13/2015 11:02pm 11:27pm C-Reactive Protein < 5.0 MG/L 0-9 12/13/2015 11:02pm 12/13/2015 11: 27pm Procedures Procedure Status Date Provider(s) BannermanEN METABOLIC PANEL Completed 04/07/15 LACTATE (LD) (LDH) ENZYME Completed 04/07/15 ASSAY OF MAGNESIUM Completed 04/07/15 ASSAY OF BLOOD/URIC ACID Completed 04/07/15 COMPLETE CBC W/AUTO DIFF WBC Completed 04/07/15 COMPREHEN METABOLIC PANEL Completed 04/07/15 LACTATE (LD) (LDH) ENZYME Completed 04/07/15 ASSAY OF MAGNESIUM Completed 04/07/15 ASSAY OF BLOOD/URIC ACID Completed 04/07/15 COMPLETE CBC W/AUTO DIFF WBC Completed 04/07/15 BannermanEN METABOLIC PANEL Completed 04/07/15 LACTATE (LD) (LDH) ENZYME Completed 04/07/15 ASSAY OF MAGNESIUM Completed 04/07/15 ASSAY OF BLOOD/URIC ACID Completed 04/07/15 COMPLETE CBC W/AUTO DIFF WBC Completed 04/07/15 BannermanEN METABOLIC PANEL Completed 04/07/15 LACTATE (LD) (LDH) ENZYME Completed 04/07/15 ASSAY OF MAGNESIUM Completed 04/07/15 ASSAY OF BLOOD/URIC ACID Completed 04/07/15 COMPLETE CBC W/AUTO DIFF WBC Completed 04/07/15 BannermanEN METABOLIC PANEL Completed 04/07/15 LACTATE (LD) (LDH) ENZYME Completed 04/07/15 ASSAY OF BLOOD/URIC ACID Completed 04/07/15 COMPLETE CBC W/AUTO DIFF WBC Completed 04/07/15 BannermanEN METABOLIC PANEL Completed 04/07/15 LACTATE (LD) (LDH) ENZYME Completed 04/07/15 ASSAY OF MAGNESIUM Completed 04/07/15 COMPLETE CBC W/AUTO DIFF WBC Completed 04/07/15 BannermanEN METABOLIC PANEL Completed 04/07/15 ASSAY OF BETA-2 PROTEIN Completed 04/07/15 ASSAY IGA/IGD/IGG/IGM EACH Completed 04/07/15 ASSAY IGA/IGD/IGG/IGM EACH Completed 04/07/15 ASSAY IGA/IGD/IGG/IGM EACH Completed 04/07/15 LACTATE (LD) (LDH) ENZYME Completed 04/07/15 ASSAY OF MAGNESIUM Completed 04/07/15 ASSAY NEPHELOMETRY NOT SPEC Completed 04/07/15 ASSAY NEPHELOMETRY NOT SPEC Completed 04/07/15 ASSAY OF PROTEIN SERUM Completed 04/07/15 PROTEIN E-PHORESIS SERUM Completed 04/07/15 COMPLETE CBC W/AUTO DIFF WBC Completed 04/07/15 IMMUNOFIX E-PHORESIS SERUM Completed 04/07/15 COMPREHEN METABOLIC PANEL Completed 04/07/15 LACTATE (LD) (LDH) ENZYME Completed 04/07/15 ASSAY OF MAGNESIUM Completed 04/07/15 ASSAY OF BLOOD/URIC ACID Completed 04/07/15 COMPLETE CBC W/AUTO DIFF WBC Completed 04/07/15 COMPREHEN METABOLIC PANEL Completed 04/07/15 LACTATE (LD) (LDH) ENZYME Completed 04/07/15 ASSAY OF BLOOD/URIC ACID Completed 04/07/15 COMPLETE CBC W/AUTO DIFF WBC Completed 04/07/15 COMPREHEN METABOLIC PANEL Completed 10/20/15 LACTATE (LD) (LDH) ENZYME Completed 10/20/15 ASSAY OF MAGNESIUM Completed 10/20/15 ASSAY OF BLOOD/URIC ACID Completed 10/20/15 COMPLETE CBC W/AUTO DIFF WBC Completed 10/20/15 ROUTINE VENIPUNCTURE Completed 10/23/15 CT SOFT TISSUE NECK W/DYE Completed 10/23/15 CT THORAX W/DYE Completed 10/23/15 CT ABD & PELV W/CONTRAST Completed 10/23/15 COMPREHEN METABOLIC PANEL Completed 10/23/15 LACTATE (LD) (LDH) ENZYME Completed 10/23/15 ASSAY OF MAGNESIUM Completed 10/23/15 ASSAY OF FREE THYROXINE Completed 10/23/15 ASSAY THYROID STIM HORMONE Completed 10/23/15 COMPLETE CBC W/AUTO DIFF WBC Completed 10/23/15 RBC SED RATE AUTOMATED Completed 10/23/15 C-REACTIVE PROTEIN Completed 10/23/15 [place] VIRUS AB IGM Completed 10/23/15 [place] VIRUS ANTIBODY Completed 10/23/15 651412"INFUSION, NORMAL SALINE SOLUTION , 250 CC" Completed 10/23/15 595341"LOW OSMOLAR CONTRAST MATERIAL, 300-399 MG/ML IODINE C Completed 397653"LOW OSMOLAR CONTRAST MATERIAL, 300-399 MG/ML IODINE C Completed MRI BRAIN STEM W/O & W/DYE Completed 10/25/15 GADAVIST 10ML SDV - Contrast,Gadavist 10ml Completed 10/25/15 Encounters Encounter Location Arrival/Admit Date Discharge/Depart Date Attending Provider Departed Emergency Room [facility] 12/13/15 10:26pm 12/14/15 12: 43KATRINA Salcedo MD Registered [facility] 11/17/15 9:15am RHODA TAPIA Registered [facility] 10/25/15 8:32am RHODA TPAIA Registered [facility] 10/23/15 3:23pm RHODA TAPIA Registered [facility] 10/20/15 9:08am RHODA TAPIA Discharged [facility] 04/07/15 9:19am 09/28/15 7:50pm ISAAC MUSTAFA APRN Recent Diagnosis
[2016-08-10] MEDS ORDERED: NORMAL SALINE 1,000 ML IV ONE (12:07)
[2016-08-10] MEDS ORDERED: ALLO300T2 PO (12:14)
[2016-08-10 12:53] LABS: HCT - HEMATOCRIT 41.6 % (41-53); HGB - HEMOGLOBIN 15.2 GM/DL (13.5-17.5); MEAN CORPUSCULAR HGB 29.5 UUG (26-34); MEAN CORPUSCULAR HGB CONC(MCHC 36.5 GM/DL (31-37); MEAN CORPUSCULAR VOLUME 80.8 UM3 (80-100); MEAN PLATELET VOLUME 9.6 UM3 (9.4-12.4); RED BLOOD COUNT 5.15 M/MM3 (4.50-5.90); WBC - WHITE BLOOD COUNT 10.2 T/MM3 (4.5-11.0)
[2016-08-10] MEDS ORDERED: HYDROMORPHONE 2mg/ml INJECTION IV ONE (13:00)
[2016-08-10] MEDS ORDERED: ONDANSETRON 4mg/2ml INJECTION IV ONE (13:00)
[2016-08-10 13:04] LABS: ALBUMIN 4.3 G/DL (3.5-5.0); ALBUMIN/GLOBULIN RATIO 2.4 RATIO (1.1-2.2); ALKALINE PHOSPHATASE 68 U/L (38-126); ALT (SGPT) 50 U/L (21-72); ANION GAP 14 MEQ/L (5-15); AST (SGOT) 19 U/L (17-59); BUN/CREATININE RATIO 26 RATIO (6-26); CALCIUM 8.9 MG/DL (8.4-10.2); CHLORIDE 105 MEQ/L (98-107); CO2 - CARBON DIOXIDE 23 MEQ/L (22-30); CREATININE 0.9 MG/DL (0.8-1.5); GLOMERULAR FILTRATION RATE 87; GLUCOSE 107 MG/DL (75-110); LIPASE 77 U/L (23-300); POTASSIUM 4.1 MEQ/L (3.6-5); SODIUM 142 MEQ/L (134-144); TOTAL PROTEIN 6.1 G/DL (6.3-8.2)
--- NOTE | 2016-08-10 13:04 | ERPDOC ---
Departure Disposition Decision Date: August 10, 2016 Disposition Decision Time: 15:06 Disposition: 01 DISCHARGED HOME, SELF-CARE Impression Impression Impression: Primary Impression: Non Hodgkin's lymphoma Additional Impression: Sepsis Severity: Moderate Condition: Improved Seen By: Physician only Referrals: KEVIN HARP (Family) Problems/Meds/Labs Reviewed?: Yes Medications reviewed and manag: Yes Follow up care ordered?: Yes Mental Status: Alert, Oriented [facility] - General Medical General Chief Complaint: Acute Medical Problem Stated Complaint: LYMPHOMA, FEVER, CHILLS Time Seen by Provider: 12:07 [facility] - General Medical Initial Comments 55-year-old male presents with chills, nausea, abdominal pain. Patient has history of non-Hodgkin's lymphoma has had it for approximately 7 years and has been on multiple chemotherapy drugs. The lesions along his jawline have begun to grow again, and oncology is planning on changing to a new chemotherapy drug. Patient does have a prescription for allopurinol, started taking it this morning , then shortly after had the episode of chills, felt like he had a fever as well as abdominal pain and nausea. He spoke with Dr. Aguayo. His physician recommended that he be seen in the ED for evaluation of possible sepsis, despite the fact that he was afebrile. The allopurinol was not as likely a candidate for treating his symptoms. He does have a history of sepsis of his port, but has not had symptoms of that lately. He also has developed back pain and pain radiating down his legs today. Initially he declined pain medication or nausea medication, but as he was being taken to x-ray he did request. Allergies: Coded Allergies: levofloxacin (Verified Allergy, Intermediate, DIZZINESS, 08/10/16) severe dizziness doxycycline (Verified Allergy, Mild, ITCHY, 08/10/16) Past History Past Medical History Metabolic: cancer, hypothyroidism Cardiac: other GI: constipation Neurological: TIA, migraines Musculoskeletal: back pain Surgical History General: other Family History Family PMH: FOUND: cancer Vaccines Hx Influenza Vaccination: No Hx Pneumococcal Vaccination: No Social History Smoking Status: Never smoker Substance Use Type: does not use Alcohol Intake: none Sexuality: female partner Record Review Pertinent history updated: Yes Review of Systems ENMT Jaw: see HPI Pulmonary Respiratory: see HPI GI Upper Abdomen: see HPI Musculoskeletal General: see HPI Hematologic/Lymphatic Hematologic/Lymphatic: see HPI Physical Exam General General Nourishment: well nourished, well developed, appears stated age Distress Description Patient appears to be ill, somewhat pale and weak. He appears to be having some chills, but denies being cold Vitals and Pain First Documented Vital Signs Date Time Temp Pulse Resp B/P Pulse Ox O2 Delivery O2 Flow Rate FiO2 08/10/16 11:45 98.8 87 16 125/67 96 Room Air Weight: Kilograms: 96.000 Height (feet): 5 Height (inches): 8.00 Triage Pain Scale: Normal Exams: CV: Regular rate and rhythm, without murmur or gallop, Pulses 2+ all extremities, capillary refill, <2 seconds all ext., no pedal edema noted Abdomen: Bowel sounds positive, soft, non-tender, non-distended, no hepatosplenomegaly, masses or bruits noted Neurologic: Patient is alert, and oriented, cranial nerves, motor/sensory/ cerebellar, exams w/o gross deficits, to observation Psychiatric: Patient exhibits, appropriate attention, emotion and affect Neck (brief) Comments Enlarged lymph nodes bilateral mandible. Very mildly tender. Lymph node chains bilateral anterior cervical nodes. Respiratory (brief) Comments Diminished breath sounds, no crackles or wheezes heard Musculoskeletal (brief) Comments 1+ edema bilateral lower extremities Differential Diagnoses Considering: Other (sepsis, pneumonia, cellulitis of port site, non-Hodgkin's lymphoma) Progress Results/Orders Orders Procedure Category Date Status Time Iv Lock (Ed Only) EDM 08/10/16 Transmitted 12:07 Cbc W/Auto LAB 08/10/16 Complete Diff-Reflex Manual 12:07 Cmp - Comprehensive LAB 08/10/16 Complete Metabolic 12:07 Lipase LAB 08/10/16 Complete 12:07 Blood Culture JOSEPH 08/10/16 In Process 12:07 Ua, Dip Wreflex LAB 08/10/16 Complete Microsc & Motion Graphics Designer 12:07 Urine Culture JOSEPH 08/10/16 In Process 12:07 EKG EKG 08/10/16 Logged 12:07 Kub W/Upright RAD 08/10/16 Taken 12:07 Normal Saline (Normal PHA 08/10/16 Complete Saline Iv) 12:07 Chest, Pa & Lateral RAD 08/10/16 Taken Lactate - Lactic Acid LAB 08/10/16 Complete Procalcitonin LAB 08/10/16 Complete 12:48 Lactate - Lactic Acid LAB 08/10/16 Logged 17:18 Hydromorphone PHA 08/10/16 Complete (Dilaudid) 13:00 Ondansetron Inj PHA 08/10/16 Complete (Zofran) 13:00 Iv Lock (Ed Only) EDM 08/10/16 Transmitted 14:45 Cefepime (Maxipime) PHA 08/10/16 In Process 14:45 Vancomycin (Vancocin) PHA 08/10/16 In Process 14:45 Pharmacy Consult CONS 08/10/16 Transmitted 14:45 Lab Results Laboratory Tests Test 08/10/16 12:21 08/10/16 12:40 08/10/16 14:07 Plasma Lactate 1.0MMOL/L Procalcitonin 0.07NG/ML White Blood Count 10.2T/MM3 Red Blood Count 5.15M/MM3 Hemoglobin 15.2GM/DL Hematocrit 41.6% Mean Corpuscular Volume 80.8UM3 Mean Corpuscular Hemoglobin 29.5UUG Mean Corpuscular Hemoglobin Concent 36.5GM/DL RDW Standard Deviation 36.3FL Platelet Count 232T/MM3 Mean Platelet Volume 9.6UM3 Immature Granulocyte % (Auto) % Neutrophils (%) (Auto) % Lymphocytes (%) (Auto) % Monocytes (%) (Auto) % Eosinophils (%) (Auto) % Basophils (%) (Auto) % Absolute Immature Granulocyte (auto T/MM3 Absolute Neutrophils (auto) T/MM3 Absolute Lymphocytes (auto) T/MM3 Absolute Monocytes (auto) T/MM3 Absolute Eosinophils (auto) T/MM3 Absolute Basophils (auto) T/MM3 Neutrophils % (Manual) 88.0% Band Neutrophils % 5.0% Lymphocytes % (Manual) 1.0% Reactive Lymphocytes % 1.0% Monocytes % (Manual) 2.0% Eosinophils % (Manual) 2.0% Basophils % (Manual) 1.0% Absolute Neutrophils (Manual) 9.0T/MM3 Band Neutrophils # 0.5T/MM3 Lymphocytes # (Manual) 0.1T/MM3 Reactive Lymphocytes # 0.1T/MM3 Monocytes # (Manual) 0.2T/MM3 Eosinophils # (Manual) 0.2T/MM3 Basophils # (Manual) 0.1T/MM3 Red Cell Morphology Comment Normal Turbidity < 20 Sodium Level 142MEQ/L Potassium Level 4.1MEQ/L Chloride Level 105MEQ/L Carbon Dioxide Level 23MEQ/L Anion Gap 14MEQ/L Blood Urea Nitrogen 23.0MG/DL Creatinine 0.9MG/DL Glomerular Filtration Rate Calc 87 BUN/Creatinine Ratio 26RATIO Glucose Level 107MG/DL Calculated Osmolality 277MOSM/KG Calcium Level 8.9MG/DL Total Bilirubin 0.90MG/DL Icterus Index < 2 Aspartate Amino Transf (AST/SGOT) 19U/L Alanine Aminotransferase (ALT/SGPT) 50U/L Alkaline Phosphatase 68U/L Total Protein 6.1G/DL Albumin 4.3G/DL Globulin 1.8G/DL Albumin/Globulin Ratio 2.4RATIO Lipase 77U/L Chemistry Specimen Hemolysis < 15 Urine Collection Type Cleancatch-midstream Urine Color Yellow Urine Turbidity Clear Urine pH 5.0 Urine Specific [place] >=1.030 Urine Protein Negative Urine Glucose (UA) Negative Urine Ketones 1+ Urine Blood Negative Urine Nitrite Negative Urine Bilirubin 1+ Urine Urobilinogen 0.2EU/DL Urine Leukocyte Esterase Negative Urinalysis Comment Microscopic not ind. Medications Current ED Medications Sodium Chloride (Normal Saline IV) 1,000 ml @ 1,000 mls/hr Q1H ONCE IV Last administered on 08/10/16 12:47; Start 08/10/16 at 12:07; Stop 08/10/16 at 13:06 ; Status DC Hydromorphone HCl (Dilaudid) 0.5 mg O ONCE IV Last administered on 08/10/16 12:59; Start 08/10/16 at 13:00; Stop 08/10/16 at 13:01; Status DC Ondansetron HCl 4 mg 4 mg O ONCE IV Last administered on 08/10/16 12:57; Start 08/10/16 at 13:00; Stop 08/10/16 at 13:01; Status DC Cefepime HCl 1 g/ Sodium Chloride 100 ml @ 200 mls/hr Q6H IV ; Start 08/10/16 at 14:45 Vancomycin HCl/ Sodium Chloride (Vancocin/NS) 500 ml @ 250 mls/hr O ONCE IV ; Start 08/10/16 at 14:45; Stop 08/10/16 at 16:44 Progress Progress Patient was given IV fluids and 0.5 mg Dilaudid with 4 mg of Zofran IV. Blood culture peripheral and a culture from port were both drawn. UA and urine culture also ordered. Labs were obtained with a white count still in the normal range but having doubled since yesterday from 5 up to 10. ANC is elevated with a left shift and 88% neutrophils. He has not been febrile in the ED and is maintaining blood pressure around 110/62. I spoke with Dr. Saavedra who recommended admission with sepsis antibiotics. I spoke with Dr. Lowry who agreed to accept the admission. Patient will be placed on cefepime and Vanco due to the Levaquin allergy. His blood pressure stable, lactate is appropriate, he does not seem to be severely septic, therefore IV hydration was performed as needed, but was not given at the 30 mL/kg MARTINA DUONG MD August 10, 2016 13:04
--- NOTE | 2016-08-10 13:07 | NUR ---
TO [facility] PER CART
[2016-08-10 13:19] LABS: BAND NEUTROPHILS # 0.5 T/MM3; BASOPHILS # (MANUAL) 0.1 T/MM3 (0-0.2); EOSINOPHILS # (MANUAL) 0.2 T/MM3 (0-0.5); LYMPHOCYTES # (MANUAL) 0.1 T/MM3 (1-4.8); MONOCYTES # (MANUAL) 0.2 T/MM3 (0-0.8); REACTIVE LYMPHOCYTES # 0.1 T/MM3 (0-0); TOTAL CELLS COUNTED 100 %
--- NOTE | 2016-08-10 13:21 | NUR ---
RETURNED FROM [facility]
--- NOTE | 2016-08-10 14:00 | NUR ---
OUTPUT STOOD TO VOID. VOIDED ONLY 150 CC CLEAR URINE
[2016-08-10 14:37] LABS: BLOOD, URINE NEGATIVE (NEGATIVE); COLOR,URINE YELLOW (YELLOW); LEUKOCYTE ESTERASE ,URINE NEGATIVE (NEGATIVE); NITRITE,URINE NEGATIVE (NEGATIVE); UROBILINOGEN,URINE 0.2 EU/DL (NORMAL)
[2016-08-10] MEDS ORDERED: VANCOMYCIN 2 G in NORMAL SALINE 500 ML IV ONE (14:45)
--- NOTE | 2016-08-10 14:51 | NUR ---
DERRELL JOHN IN
[2016-08-10] MEDS: CEFEPIME 1 G in NORMAL SALINE 100 ML IV SCH ×2 (15:06→21:53)
--- NOTE | 2016-08-10 15:17 | NUR ---
PHONE REPORT TO ZAKIYA WHALEN
[2016-08-10 15:29] VITALS: BP 114/65; PULSE 83; RESP 16; O2SAT 94; Ht 172.7 cm; Wt 95.6 kg
--- NOTE | 2016-08-10 15:30 | NUR ---
VANCOMYCIN CONSULT: 55 y.o. male with history of lymphoma admitted through ER with fever and chills, Cefepime and vancomycin per pharmacy ordered for empiric coverage of sepsis. goal vancomycin trough range = 15 to 20 mcg/ml Current Renal Fx: SCr = 0.9 mg/dl est CrCl ~100 ml/min Will give Vancomycin 2,000 mg IV q12hrs. Will continue to monitor and adjust regimen to maintain therapeutic levels. Thank you. Lesa Tovar RPh
[2016-08-10] MEDS ORDERED: HYDROMORPHONE 2mg/ml INJECTION IV PRN (15:45)
[2016-08-10] MEDS ORDERED: ONDANSETRON 4mg/2ml INJECTION IV PRN (15:45)
--- NOTE | 2016-08-10 15:50 | HPPDOC ---
DERRELL JORDAN APRN 08/10/16 1511: HPI - Adult Date DATE: 08/10/16 TIME: 15:08 General Chief Complaint: Shaking History of Present Illness Manish Brown is a 55 yr old male with a 7-yr hx of follicular lymphoma. He had been receiving Rituxan, but a repeat CT scan on 06/21/16 showed disease progression. Rituxan was discontinued and he had planned to start new treatment on 08/15/[address] Aguayo. Manish had been in fairly good health, but in the morning of 08/10/16, he developed rigors and chills. He states that he had foot and leg cramps last night, and took some OTC magnesium. He covered himself up in blankets and wore his winter coat to run some errands in town. He had some pain in both of his thighs also. He also reports RLQ pain and 1 episode of diarrhea yesterday, but none since. This was not in conjunction with his daily coffee enema, which he does every morning. With lymphoma, he often gets brief bursts of pain, but typically in his lower back or suprapubic area. He was reminded of when he had a port infection a few years ago - about an hour after his port was "flushed", he developed a reaction with chills and shaking. His new port was placed by Dr. Cueto in October,. Manish called Dr. Lopez, radio station audio engineer for Dr. Aguayo, and was instructed to go to the ED. VSS were stable with RR of 20 noted as only SIRS criteria. Labs showed a WBC of 10 with a left shift (neut 88%, bands 5%). Chemistries were essentially unremarkable. Lactate, procalcitonin, and UA were negative. CXR and KUB failed to show acute processes. Dr. Lopez was contacted and recommended admission and IV abx. He received 1L of IVF and Cefepime and Vancomycin were ordered. Dr. Hansen was notified and the patient was admitted for further workup. Past Medical History Past Medical History Patient's Medical History: (1) Follicular lymphoma (2) Hypothyroidism (3) TIA (transient ischemic attack) (4) Tricuspid regurgitation (5) Mitral regurgitation Permanent Comment: ROGELIO 10/2014: EF 60% Last Edited By: Derrell Jordan on July 15:23 (6) Bacteremia associated with IV line Permanent Comment: MSSA 09/2014 Last Edited By: Derrell Jordan on August 10, 2016 15:42 (7) Obesity (BMI 30.0-34.9) Surgical History Patient's Surgical History: lymph node bx/removal, power port insertion (05/2012) and removal (11/01/14), PowerPort inserted 11/22/2014 Dr. Cueto Current Medications Home Meds Reported Medications Allopurinol (Allopurinol) 300 Mg Tablet, 300 MG PO DAILY 08/10/16 Acyclovir (Acyclovir) 400 Mg Tablet, 400 MG PO BID 10/31/14 Liothyronine Sodium (Liothyronine Sodium) 5 Mcg Tablet, 5 MCG PO DAILY 10/20/14 Allergies: Coded Allergies: levofloxacin (Verified Allergy, Intermediate, DIZZINESS, 08/10/16) severe dizziness doxycycline (Verified Allergy, Mild, ITCHY, 08/10/16) Family History Family History: Father of lung cancer denies other pertinent family hx Social History Smoking Status: Never smoker Substance Use Type: does not use, marijuana (smoked marijuana 40 years ago) Alcohol Intake: none Marital Status: Current Occupational Status: employed Current Occupation: Analytics at [employer] Review of Systems Constitutional: REPORTS: chills, weight gain (2 lbs), DENIES: appetite decrease , dizziness, fatigue, fever, weakness, weight loss Eyes Vision: REPORTS: other (wears glasses), DENIES: vision changes ENMT Sinuses: NOT FOUND: congestion, rhinorrhea Mouth/Throat: REPORTS: masses, DENIES: change in swallowing, painful swallowing , sore throat Cardiovascular DENIES: chest pain, dyspnea on exertion Vascular: DENIES: pedal edema Pulmonary Respiratory: DENIES: cough, dyspnea GI Upper Abdomen: DENIES: nausea, vomiting Lower Abdomen: diarrhea, DENIES: blood in stool, constipation, melena General: DENIES: dysuria, frequency Musculoskeletal General: see HPI, DENIES: weakness Integumentary Skin: infections (concerned about port infection), DENIES: rash Neurological General: DENIES: seizures, syncope, weakness Psychiatric Psychiatric: DENIES: memory impairment Hematologic/Lymphatic DENIES: anemia All Other Systems All Other Systems: Reviewed (remainder of 10-point ROS Neg.) Physical Exam General General Nourishment: well nourished, well developed, obese General Body Habitus: well groomed Vital Signs Vital Signs Date Time Temp Pulse Resp B/P Pulse Ox O2 Delivery O2 Flow Rate FiO2 08/10/16 13:59 99.0 89 20 110/62 95 Room Air Height (Feet): 5 Height (Inches): 8.00 Eyes Brief: FOUND: PERRL, NOT FOUND: scleral icterus ENMT Brief: FOUND: mucosa moist, NOT FOUND: pharnyx erythema Neck Brief: FOUND: adenopathy, NOT FOUND: nuchal rigidity Respiratory Auscultation: FOUND: normal, NOT FOUND: rales, rhonchi, wheezes Cardiovascular Auscultation: FOUND: S1, S2, regular Peripheral Pulses: 2+: Dorasalis Pedis (L), Dorsalis Pedis (R), Posterior Tibial (L), Posterior Tibial (R), Radial (L), Radial (R) Edema: 0: Arm (L), Arm (R), Face, Leg (L), Leg (R) Abdomen Inspection: FOUND: distention Palpation: FOUND: hepatomegaly, tender, voluntary guarding (epigastric, suprapubic, and LLQ) Auscultation: FOUND: hypoactive Musculoskeletal (brief) Musculoskeletal Brief: FOUND: extremities move equally Integumentary (brief) Integumentary Brief: FOUND: dry, pink, warm Integumentary General: FOUND: dry, warm Color: FOUND: pink Neurologic (brief) Neurological Brief: NOT FOUND: facial droop, ptosis Neurologic GCS Eye Opening: (4)Spontaneous GCS Verbal: (5)Oriented GCS Motor: (6)Obeys Commands RN Documented GCS Total: 15 Psychiatric (brief) FOUND: alert, attentive, normal affect, oriented Laboratory Laboratory Tests Test 08/10/16 12:21 08/10/16 12:40 08/10/16 14:07 Plasma Lactate 1.0MMOL/L Procalcitonin 0.07NG/ML White Blood Count 10.2T/MM3 Red Blood Count 5.15M/MM3 Hemoglobin 15.2GM/DL Hematocrit 41.6% Mean Corpuscular Volume 80.8UM3 Mean Corpuscular Hemoglobin 29.5UUG Mean Corpuscular Hemoglobin Concent 36.5GM/DL RDW Standard Deviation 36.3FL Platelet Count 232T/MM3 Mean Platelet Volume 9.6UM3 Immature Granulocyte % (Auto) % Neutrophils (%) (Auto) % Lymphocytes (%) (Auto) % Monocytes (%) (Auto) % Eosinophils (%) (Auto) % Basophils (%) (Auto) % Absolute Immature Granulocyte (auto T/MM3 Absolute Neutrophils (auto) T/MM3 Absolute Lymphocytes (auto) T/MM3 Absolute Monocytes (auto) T/MM3 Absolute Eosinophils (auto) T/MM3 Absolute Basophils (auto) T/MM3 Neutrophils % (Manual) 88.0% Band Neutrophils % 5.0% Lymphocytes % (Manual) 1.0% Reactive Lymphocytes % 1.0% Monocytes % (Manual) 2.0% Eosinophils % (Manual) 2.0% Basophils % (Manual) 1.0% Absolute Neutrophils (Manual) 9.0T/MM3 Band Neutrophils # 0.5T/MM3 Lymphocytes # (Manual) 0.1T/MM3 Reactive Lymphocytes # 0.1T/MM3 Monocytes # (Manual) 0.2T/MM3 Eosinophils # (Manual) 0.2T/MM3 Basophils # (Manual) 0.1T/MM3 Red Cell Morphology Comment Normal Turbidity < 20 Sodium Level 142MEQ/L Potassium Level 4.1MEQ/L Chloride Level 105MEQ/L Carbon Dioxide Level 23MEQ/L Anion Gap 14MEQ/L Blood Urea Nitrogen 23.0MG/DL Creatinine 0.9MG/DL Glomerular Filtration Rate Calc 87 BUN/Creatinine Ratio 26RATIO Glucose Level 107MG/DL Calculated Osmolality 277MOSM/KG Calcium Level 8.9MG/DL Total Bilirubin 0.90MG/DL Icterus Index < 2 Aspartate Amino Transf (AST/SGOT) 19U/L Alanine Aminotransferase (ALT/SGPT) 50U/L Alkaline Phosphatase 68U/L Total Protein 6.1G/DL Albumin 4.3G/DL Globulin 1.8G/DL Albumin/Globulin Ratio 2.4RATIO Lipase 77U/L Chemistry Specimen Hemolysis < 15 Urine Collection Type Cleancatch-midstream Urine Color Yellow Urine Turbidity Clear Urine pH 5.0 Urine Specific [place] >=1.030 Urine Protein Negative Urine Glucose (UA) Negative Urine Ketones 1+ Urine Blood Negative Urine Nitrite Negative Urine Bilirubin 1+ Urine Urobilinogen 0.2EU/DL Urine Leukocyte Esterase Negative Urinalysis Comment Microscopic not ind. Assessment & Plan Problems: (1) Rigors Status: Acute (2) Follicular lymphoma Status: Chronic (3) Hypothyroidism Status: Chronic (4) Obesity (BMI 30.0-34.9) Status: Chronic Plan/Intensity of Service Admit to hospitalist service, inpatient status, for suspected port infection. Sepsis markers were negative. He develops a rash with Levaquin. Will administer Cefepime and Vancomycin for now. BC were drawn in the ED. Consult pharmacy for Vancomycin dose. Consult Dr. Daniels to assess port. Repeat CT scan today due to abdominal tenderness, diarrhea. CT scan 06/21/16 showed: 1. Worsening disease status in the abdomen with enlarging retroperitoneal adenopathy and new areas of small bowel involvement. 2. Overall stable disease in the chest and neck. Medication reconciliation - pending. Need to review for other OTC medications. Start NS at 100 mL/hr to help reduce contrast load. Zofran/Dilaudid PRN. Recent diarrhea; check stool for infectious etiology. Consider more thorough rectal visualization given hx of daily coffee enemas. Discussed A/P with Dr. Hansen. DVT Prophylaxis: SCD'S Code Status Hospital Course Summary Disclaimer The hospital course summary below is not to be considered part of the above Progress Note. Hospital Course Summary 08/10/16 Admit to hospitalist service, inpatient status, for suspected port infection. Sepsis markers were negative. He develops a rash with Levaquin. Will administer Cefepime and Vancomycin for now. BC were drawn in the ED. Consult pharmacy for Vancomycin dose. Consult Dr. Daniels to assess port. Repeat CT scan today due to abdominal tenderness, diarrhea. CT scan 06/21/16 showed: 1. Worsening disease status in the abdomen with enlarging retroperitoneal adenopathy and new areas of small bowel involvement. 2. Overall stable disease in the chest and neck. Medication reconciliation - pending. Need to review for other OTC medications. Start NS at 100 mL/hr to help reduce contrast load. Zofran/Dilaudid PRN. Recent diarrhea; check stool for infectious etiology. Consider more thorough rectal visualization given hx of daily coffee enemas. ELKIN HANSEN MD 08/10/16 1615: Past Medical History Current Medications Home Meds Reported Medications Allopurinol (Allopurinol) 300 Mg Tablet, 300 MG PO DAILY 08/10/16 Acyclovir (Acyclovir) 400 Mg Tablet, 400 MG PO BID 10/31/14 Liothyronine Sodium (Liothyronine Sodium) 5 Mcg Tablet, 5 MCG PO DAILY 10/20/14 Allergies: Coded Allergies: levofloxacin (Verified Allergy, Intermediate, DIZZINESS, 08/10/16) severe dizziness doxycycline (Verified Allergy, Mild, ITCHY, 08/10/16) Assessment & Plan Plan/Intensity of Service Patient was seen and examined independently of Derrell; the above assessment and plan is a reflection of our shared decision making. Long history of lymphoma treatment, has had previous PAC infection on the right and now there is concern for infection on the left. Increasing abdominal pain recently, variable but severe at times. Would prefer to avoid IV contrast as his LANA after contrast-induced nephropathy resulted in renal failure. On exam he is awake, alert, appropriate and oriented x3. He is warm and appears feverish. He has scars from lymph node dissections on his bilateral neck/buccal region and well-healed PAC scar on the right where the previous port was removed. No CVA tenderness, bowel sounds hypoactive and abdomen mildly distended, mildly tender at the RLQ without rebound or guarding. No edema. CV regular, tachycardic. Lungs clear bilaterally. - Will proceed with CTAP this evening to ensure no abdominal etiology driving his presentation, particularly in light of coffee enemas and possibility of introducing pathogens through the rectum - Hold IV contrast with the CT scan but will use oral contrast after discussion with him - Continue broad spectrum abx and monitor for further fevers, hemodynamic instability - Regular diet after CTAP with prelim read tonight - 1 additional liter of IVF; labs appear hemoconcentrated with Hb and albumin elevated, urine with SG 1030 DERRELL JORDAN APRN August 10, 2016 15:11 ELKIN HANSEN MD August 10, 2016 16:15
[2016-08-10 16:03] VITALS: PULSE 83; RESP 16; O2SAT 94
[2016-08-10] MEDS: NORMAL SALINE 1,000 ML IV SCH (16:07)
--- NOTE | 2016-08-10 17:14 | NUR ---
OTC/ herbal Pt states he does not take any other OTC or herbal meds.
--- NOTE | 2016-08-10 17:15 | NUR ---
admit Pt to room via WC. V/S taken and stable on RA. Pt rating pain down to 1/10. Ambulating well in room, denies SOA or dizziness. Will be NPO till after CT, then reg diet.
[2016-08-10 22:00] VITALS: O2SAT 96
[2016-08-10] MEDS: ACETAMINOPHEN 500 MG TABLET PO PRN (22:15)
[2016-08-11] MEDS: VANCOMYCIN 2,000 MG in NORMAL SALINE 500 ML IV SCH ×2 (00:45→13:17)
[2016-08-11 00:49] VITALS: BP 111/64; PULSE 71; RESP 18; TEMP 98.2; O2SAT 95
[2016-08-11 01:00] VITALS: O2SAT 93
[2016-08-11] MEDS: NORMAL SALINE 1,000 ML IV SCH (01:45)
[2016-08-11 03:00] VITALS: O2SAT 94
[2016-08-11] MEDS: CEFEPIME 1 G in NORMAL SALINE 100 ML IV SCH ×4 (03:52→20:44)
--- NOTE | 2016-08-11 04:15 | NUR ---
SUMMARY A&O X3. REPORTED H.A. RATED 2/10, ORDER FOR TYLENOL OBTAINED, 500 MG Q6H PRN. UP AD AMANDA IN ROOM. POWER PORT TO LT CHEST PATENT, ASPIRATES GREAT, NS RUNNING AT 100 ML/HR. NO CONCERNS AT THIS TIME.
[2016-08-11 04:29] LABS: BASOPHILS % (AUTO) 0.2 % (0-2); EOSINOPHILS # (AUTO) 0.1 T/MM3 (0-0.5); EOSINOPHILS % (AUTO) 2.7 % (0-4); HCT - HEMATOCRIT 37.4 % (41-53); HGB - HEMOGLOBIN 13.2 GM/DL (13.5-17.5); IMMATURE GRANULOCYTE # (AUTO) 0.01 T/MM3 (0.00-0.03); IMMATURE GRANULOCYTE % (AUTO) 0.2 % (0.0-0.5); LYMPHOCYTES # (AUTO) 0.6 T/MM3 (1-4.8); LYMPHOCYTES % (AUTO) 11.2 % (23-45); MEAN CORPUSCULAR HGB 29.5 UUG (26-34); MEAN CORPUSCULAR HGB CONC(MCHC 35.3 GM/DL (31-37); MEAN CORPUSCULAR VOLUME 83.7 UM3 (80-100); MEAN PLATELET VOLUME 9.6 UM3 (9.4-12.4); MONOCYTES # (AUTO) 0.4 T/MM3 (0-0.8); MONOCYTES % (AUTO) 8.1 % (0-9.0); NEUTROPHILS #(AUTO)-ABSOLUTE 4.1 T/MM3 (1.8-7.7); NEUTROPHILS % (AUTO) 77.6 % (33-66); RED BLOOD COUNT 4.47 M/MM3 (4.50-5.90); WBC - WHITE BLOOD COUNT 5.3 T/MM3 (4.5-11.0)
[2016-08-11 04:41] LABS: ALBUMIN 3.6 G/DL (3.5-5.0); ANION GAP 10 MEQ/L (5-15); BUN/CREATININE RATIO 15 RATIO (6-26); CALCIUM 8.7 MG/DL (8.4-10.2); CHLORIDE 109 MEQ/L (98-107); CO2 - CARBON DIOXIDE 24 MEQ/L (22-30); GLOMERULAR FILTRATION RATE 77; GLUCOSE 115 MG/DL (75-110); PHOSPHORUS 2.6 MG/DL (2.5-4.5); POTASSIUM 4.2 MEQ/L (3.6-5); SODIUM 143 MEQ/L (134-144)
[2016-08-11] MEDS: ACETAMINOPHEN 500 MG TABLET PO PRN ×2 (06:31→09:00)
[2016-08-11 08:00] VITALS: BP 122/70; PULSE 72; RESP 16; TEMP 97.8; O2SAT 95
[2016-08-11] MEDS ORDERED: POLYETHYL.GLYCOL 3350 PACKET 17gm PO PRN (08:00)
[2016-08-11] MEDS ORDERED: SENNA + DOCUSATE TAB PO PRN (08:00)
[2016-08-11] MEDS: ACYCLOVIR 200 MG CAPSULE PO SCH ×3 (08:58→21:47)
[2016-08-11] MEDS: ALLOPURINOL 300 MG TABLET PO SCH (08:58)
[2016-08-11] MEDS: LIOTHYRONINE SODIUM 5 MCG TABLET PO SCH (08:59)
--- NOTE | 2016-08-11 10:11 | DI ---
Indication: ITS.REASON: nausea vomiting, abdominal pain PROCEDURE: KUB W/UPRIGHT: Encounter: Initial Comparison: None Findings: The visualized lung bases are clear. There is no free air on the upright view. The bowel gas pattern is nonobstructive and nonspecific. Gas is seen in nondilated small and large bowel to the level of the rectum. Moderate stool is seen throughout the colon. The bony structures are grossly unremarkable. Impression: Nonobstructive nonspecific bowel gas pattern. .
--- NOTE | 2016-08-11 10:12 | DI ---
INDICATION: ITS.REASON: lymphoma PROCEDURE: CHEST 2-VIEWS UPRIGHT (PA \T\ LAT) Encounter: Initial COMPARISON: Chest CT dated June 21, 2016 FINDINGS: The lungs are clear without evidence of focal abnormal airspace opacity. There is no pleural effusion or pneumothorax. Left subclavian port. The heart size, mediastinal contours and pulmonary vascularity are unchanged. Mediastinal adenopathy better seen on prior CTs. IMPRESSION: No acute cardiopulmonary disease. .
--- NOTE | 2016-08-11 10:31 | PNPDOC ---
Subjective Date DATE: 08/11/16 TIME: 10:28 Subjective No fevers overnight, WBC improved with antibiotics. CTAP preliminary report reviewed and slightly increased LAD from May exam but no other acute findings. Denies abdominal pain, diarrhea, fevers, chills. + dull occipital ABBOTT this morning. No dyspnea. Objective Vital Signs Vital signs Vital Signs Date Time Temp Pulse Resp B/P Pulse Ox O2 Delivery O2 Flow Rate FiO2 08/11/16 03:00 61 18 94 Room Air 08/11/16 00:49 98.2 111/64 Height (Feet): 5 Height (Inches): 8.00 Weight (Kilograms): 90.000 General General Appearance: Alert, Orientated x 3, Cooperative Eyes (Brief) Eyes: FOUND: EOMI, PERRL, NOT FOUND: scleral icterus Neck (Brief) Neck: FOUND: adenopathy, NOT FOUND: JVD, nuchal rigidity Respiratory (Brief) Respiratory: FOUND: clear all garcia, equal bilaterally, NOT FOUND: rales, wheezes Cardiovascular (Brief) Cardiac: FOUND: regular rate, regular rhythm, NOT FOUND: pedal edema Abdomen (Brief) Abdominal: FOUND: soft, NOT FOUND: distended, tender Extremities (Brief) Extremity : Extremity Finding: NOT FOUND: clubbing, cyanosis, edema Integumentary (Brief) Integumentary: FOUND: dry, warm, NOT FOUND: rash Psychiatric (Brief) Psychiatric: FOUND: alert, attentive, normal affect, oriented Laboratory Laboratory Laboratory Tests 08/09/16 16:00 08/10/16 12:40 08/11/16 04:03 Laboratory Tests 08/10/16 12:40 08/11/16 04:03 Microbiology Microbiology Microbiology Date/Time Source Procedure Growth Status 08/10/16 12:40 Cath/Port/Line/Picc Blood Culture - Preliminary CULTURE INITIATED - RESULTS PENDING Resulted 08/10/16 12:40 Cath/Port/Line/Picc Blood Culture - Preliminary CULTURE INITIATED - RESULTS PENDING Resulted 08/10/16 14:07 Urine, Clean Catch-Midstream Urine Culture - Preliminary CULTURE INITIATED - RESULTS PENDING Resulted Assessment & Plan Problems: (1) Rigors Status: Resolved (2) Follicular lymphoma Status: Chronic Assessment & Plan: Following with Dr. Altamirano and treating x 7 years, most recently multiple cycles of rituximab, significant abdominal adenopathy (3) Hypothyroidism Status: Chronic (4) Obesity (BMI 30.0-34.9) Status: Chronic (5) Constipation, chronic Status: Chronic Assessment & Plan: Typically uses daily coffee enemas at home, has prn laxatives ordered here (6) Headache Status: Acute Qualifiers: Headache type: tension-type Assessment & Plan: Improves slightly with APAP Plan/Intensity of Service Continue monitoring inpatient due to concern for port infection; blood cultures < 24 hours currently with no growth as of yet Sepsis markers were negative. He develops a rash with Levaquin. Will continue Cefepime and Vancomycin for now. BC were drawn in the ED (pending, both peripheral and port cultures) Consulted pharmacy for Vancomycin dose. Will ask surgery to assess port if any positive cultures, currently no indication for removal, was placed by Dr. Cueto who has done many of his surgeries. Repeated abdominal CT yesterday due to abdominal tenderness, diarrhea. CT scan showed: 1. Worsening disease status in the abdomen with enlarging retroperitoneal adenopathy and new areas of small bowel involvement. 2. Overall stable disease in the chest and neck. --> repeat scan with final read pending but prelminary demonstrating increased LAD but no acute findings, f/u final report DC IVF and monitor on po intake today. Repeat surveillance labs in AM. Laxatives prn for chronic constipation PRN muscle relaxant for ABBOTT; sounds like a tension headache per his description DVT Prophylaxis: Lovenox Code Status Full Code Hospital Course Summary Disclaimer The hospital course summary below is not to be considered part of the above Progress Note. Hospital Course Summary 08/10/16 Admit to hospitalist service, inpatient status, for suspected port infection. Sepsis markers were negative. He develops a rash with Levaquin. Will administer Cefepime and Vancomycin for now. BC were drawn in the ED. Consult pharmacy for Vancomycin dose. Consult Dr. Daniels to assess port. Repeat CT scan today due to abdominal tenderness, diarrhea. CT scan 06/21/16 showed: 1. Worsening disease status in the abdomen with enlarging retroperitoneal adenopathy and new areas of small bowel involvement. 2. Overall stable disease in the chest and neck. Medication reconciliation - pending. Need to review for other OTC medications. Start NS at 100 mL/hr to help reduce contrast load. Zofran/Dilaudid PRN. Recent diarrhea; check stool for infectious etiology. Consider more thorough rectal visualization given hx of daily coffee enemas. 08/11/2016 Continue monitoring inpatient due to concern for port infection; blood cultures < 24 hours currently with no growth as of yet Sepsis markers were negative. He develops a rash with Levaquin. Will continue Cefepime and Vancomycin for now. BC were drawn in the ED (pending, both peripheral and port cultures) Consulted pharmacy for Vancomycin dose. Will ask surgery to assess port if any positive cultures, currently no indication for removal, was placed by Dr. Cueto who has done many of his surgeries. Repeated abdominal CT yesterday due to abdominal tenderness, diarrhea. CT scan showed: 1. Worsening disease status in the abdomen with enlarging retroperitoneal adenopathy and new areas of small bowel involvement. 2. Overall stable disease in the chest and neck. --> repeat scan with final read pending but prelminary demonstrating increased LAD but no acute findings DC IVF and monitor on po intake today. Repeat surveillance labs in AM. Laxatives prn for chronic constipation PRN muscle relaxant for ABBOTT; sounds like a tension headache per his description ELKIN STYLES MD August 11, 2016 10:31
--- NOTE | 2016-08-11 10:37 | DI ---
Indication: ITS.REASON: abdominal pain, sepsis PROCEDURE: CT ABD/PELVIS W/O CONTRAST: Encounter: Initial Comparison: CT abdomen and pelvis dated June 21, 2016 Technique: Axial CT images were performed through the abdomen and pelvis without intravenous contrast. Coronal and sagittal two-dimensional reformats. Automated Exposure Control and Iterative Reconstruction dose reducing techniques were utilized. Findings: The lung bases are clear. The unenhanced contours of the liver are unremarkable. The gallbladder appears normal. The spleen, pancreas and adrenal glands are stable. Kidneys are unchanged. Mesenteric adenopathy and stranding is similar to the prior study. There is hazy infiltration of the mesentery and some component of mesenteric hemorrhage cannot be entirely excluded although most of this is almost certainly due to tumor infiltration. Bulky retroperitoneal lymph nodes are similar in overall size. No evidence of a small bowel obstruction. Bladder is unremarkable. No free fluid or free air. Impression: Overall slight worsening in mesenteric infiltration which is probably due to the patient's lymphoma with extensive retroperitoneal and mesenteric adenopathy. No evidence of an acute small bowel obstruction. There is a preliminary report by [employer]. .
[2016-08-11] MEDS ORDERED: CYCLOBENZAPRINE 5 MG TABLET PO PRN (10:45)
[2016-08-11 16:00] VITALS: BP 128/69; PULSE 70; RESP 16; TEMP 97.6; O2SAT 95
--- NOTE | 2016-08-11 18:09 | NUR ---
SHIFT SUMMARY MARTINA HAS BEEN PLEASANT AND COOPERATIVE TODAY. HAS POWER PORT TO L SIDE OF CHEST WHICH IS STILL PATENT. RECEIVED 2 DOSES OF CEFEPIME AND 1 OF VANCO DURING MY SHIFT. PT ALSO TOOK A SHOWER TODAY. COMPLAINED OF PAIN TO HIS BACK TODAY WHICH HE WAS GIVEN TYLENOL FOR. HAS NOT COMPLAINED OF PAIN EVER SINCE. PTS FAMILY HAS SPENT MOST OF THE DAY AT BEDSIDE. PT IS STILL ON A REGULAR DIET AND ATE 100& OF HIS MEALS TODAY. PT ALSO AMBULATED IN HALLWAYS WITH . WILL CONTINUE TO MONITOR.
[2016-08-12 00:51] VITALS: BP 112/67; PULSE 73; RESP 18; TEMP 98.4; O2SAT 95
[2016-08-12] MEDS: VANCOMYCIN 2,000 MG in NORMAL SALINE 500 ML IV SCH ×2 (01:29→12:50)
[2016-08-12] MEDS: ACETAMINOPHEN 500 MG TABLET PO PRN (01:34)
[2016-08-12] MEDS: CEFEPIME 1 G in NORMAL SALINE 100 ML IV SCH ×3 (03:43→15:09)
[2016-08-12 04:23] LABS: BASOPHILS % (AUTO) 0.4 % (0-2); EOSINOPHILS # (AUTO) 0.3 T/MM3 (0-0.5); EOSINOPHILS % (AUTO) 7.3 % (0-4); HCT - HEMATOCRIT 35.9 % (41-53); HGB - HEMOGLOBIN 12.8 GM/DL (13.5-17.5); IMMATURE GRANULOCYTE # (AUTO) 0.01 T/MM3 (0.00-0.03); IMMATURE GRANULOCYTE % (AUTO) 0.2 % (0.0-0.5); LYMPHOCYTES # (AUTO) 0.9 T/MM3 (1-4.8); LYMPHOCYTES % (AUTO) 18.5 % (23-45); MEAN CORPUSCULAR HGB 29.6 UUG (26-34); MEAN CORPUSCULAR HGB CONC(MCHC 35.7 GM/DL (31-37); MEAN CORPUSCULAR VOLUME 82.9 UM3 (80-100); MEAN PLATELET VOLUME 9.5 UM3 (9.4-12.4); MONOCYTES # (AUTO) 0.5 T/MM3 (0-0.8); MONOCYTES % (AUTO) 10.3 % (0-9.0); NEUTROPHILS #(AUTO)-ABSOLUTE 2.9 T/MM3 (1.8-7.7); NEUTROPHILS % (AUTO) 63.3 % (33-66); RED BLOOD COUNT 4.33 M/MM3 (4.50-5.90); WBC - WHITE BLOOD COUNT 4.7 T/MM3 (4.5-11.0)
[2016-08-12 04:34] LABS: ALBUMIN 3.5 G/DL (3.5-5.0); ANION GAP 8 MEQ/L (5-15); BUN/CREATININE RATIO 15 RATIO (6-26); CALCIUM 8.5 MG/DL (8.4-10.2); CHLORIDE 110 MEQ/L (98-107); CO2 - CARBON DIOXIDE 25 MEQ/L (22-30); GLOMERULAR FILTRATION RATE 77; GLUCOSE 123 MG/DL (75-110); PHOSPHORUS 3.1 MG/DL (2.5-4.5); SODIUM 143 MEQ/L (134-144)
--- NOTE | 2016-08-12 06:41 | NUR ---
SUMMARY PT IN BED SLEEPING. ALERT AND ORIENTED. WAS GIVEN TYLENOL X 1 FOR HEADACHE. UP AD AMANDA IN ROOM. PAC ON THE LEFT CHEST INTACT AND ASPIRATING. NO REDNESS OR TENDERNESS NOTED. CONTINUES ON IV ANTIBIOTICS THAT HE TOLERATES WELL. PT WAS EDUCATED ABOUT THE CALL LIGHT USE AND PT SAFETY.
[2016-08-12 08:00] VITALS: BP 117/68; PULSE 66; RESP 16; TEMP 97.7; O2SAT 97
[2016-08-12] MEDS: ALLOPURINOL 300 MG TABLET PO SCH (08:29)
[2016-08-12] MEDS: LIOTHYRONINE SODIUM 5 MCG TABLET PO SCH (08:29)
[2016-08-12] MEDS: ACYCLOVIR 200 MG CAPSULE PO SCH (08:29)
--- NOTE | 2016-08-12 08:43 | CONSF ---
REASON FOR CONSULTATION Lymphoma. HISTORY OF PRESENT ILLNESS This is a 55-year-old male patient who sees Dr. Aguayo for lymphoma treatment with Rituximab. Patient has a history of follicular non-Hodgkins lymphoma for seven years. He was on Rituximab. Last scan in May 2016 showed disease progression and he resumed Rituximab which he had received in the past. Last Rituximab was about 2-3 weeks ago. The patient had a Port-A-Cath flush yesterday. He developed chills at home. The patient has history of Port-A- Cath infection with MRSA in 2016. Port-A-Cath on the right side of his hip was removed. Another Port-A-Cath was placed in October [address] Cueto. The patient presented to the ER with chills. His temperature in the ER was 98. He was just not feeling well but had no fever in the ER. Lab work in the ER showed hemoglobin of 15.2, white count of 10, ANC of 9. Platelets were 232. Chest x-ray was unremarkable. UA negative. He was started on Vancomycin and Cefepime for possible sepsis. Procalcitonin came back 0.07. Lactate 1.0. REVIEW OF SYSTEMS GENERAL: Chills at home. Afebrile in the ER. RESPIRATORY: Denies shortness of breath or cough. CARDIOVASCULAR: No chest pain. GI: Right upper quadrant abdominal pain. No diarrhea, no blood in his stools. ENGROSSER: No history of stroke. : No urinary symptoms. PAST MEDICAL HISTORY 1. Hypercalcemia. 2. History of TIA. 3. History of MRSA Port-A-Cath infection in 2016 status post Port-A-Cath removed from the right side. MEDICATIONS 1. Allopurinol. 2. Acyclovir. 3. Vancomycin and Cefepime. ALLERGIES Levaquin. PHYSICAL EXAMINATION VITAL SIGNS: Stable. GENERAL: Not in acute distress. SKIN: Intact, no rash. LUNGS: Clear to auscultation. CARDIOVASCULAR: Normal sinus rhythm. No murmur, no JVD. ABDOMEN: Fullness in the epigastric and right upper quadrant. No discrete mass, no ascites. Bowel sounds positive. LYMPH SYSTEM: Occipital and upper neck adenopathy, more in the left than the right side. LABORATORY White count is 10, ANC 9, hemoglobin 15.2, platelets 282. Procalcitonin 0.07. Lactate 1.0. IMAGING Chest x-ray is negative. ASSESSMENT 1. Relapse of follicular non-Hodgkins lymphoma, on Rituximab. Last dose about three weeks ago. 2. Chills following Port-A-Cath flush, raising concern for bacteremia. Patient has history of bacteremia in 2016 with removal of Port-A-Cath from the right side of the chest. Currently patient has a new Port-A-Cath on the left side, placed in October 2015. The Port-A-Cath is not tender. No signs of local infection of the Port-A Cath. RECOMMENDATION AND PLAN 1. Continue antibiotics with Vancomycin and Cefepime pending blood culture. 2. Patient will follow up with Dr. Aguayo in the office for the lymphoma. MIAD
--- NOTE | 2016-08-12 09:59 | PNPDOC ---
Subjective Date DATE: 08/12/16 TIME: 09:55 Subjective Manish was in his room working on his laptop. He feels good, and denies any symptoms. No fevers/chills, sweats, cough, SOA, abdominal pain, back pain, or diarrhea. He's constipated but thinks that will resolve today. He is curious about going home - we need to check with Dr. Dede brock. Objective Vital Signs Vital signs Vital Signs Date Time Temp Pulse Resp B/P Pulse Ox O2 Delivery O2 Flow Rate FiO2 08/12/16 00:51 98.4 73 18 112/67 95 Room Air Height (Feet): 5 Height (Inches): 8.00 Weight (Kilograms): 95.600 General General Appearance: Alert, Orientated x 3, Well Nourished, Well Developed, No Acute Distress Eyes (Brief) Eyes: FOUND: PERRL, NOT FOUND: scleral icterus ENMT (Brief) ENMT: FOUND: mucosa moist, NOT FOUND: pharnyx erythema Respiratory (Brief) Respiratory: FOUND: clear all garcia, equal bilaterally Cardiovascular (Brief) Cardiac: FOUND: regular rate, regular rhythm Abdomen (Brief) Abdominal: FOUND: BS normo active x4, distended, NOT FOUND: tender Extremities (Brief) Extremity : Extremity Finding: NOT FOUND: edema Musculoskeletal (Brief) Musculoskeletal: NOT FOUND: tenderness (calves soft) Integumentary (Brief) Integumentary: FOUND: dry, pink, warm Psychiatric (Brief) Psychiatric: FOUND: alert, attentive, normal affect, oriented Laboratory Laboratory Laboratory Tests 08/10/16 12:40 08/11/16 04:03 08/12/16 04:07 Laboratory Tests 08/10/16 12:40 08/11/16 04:03 08/12/16 04:07 Microbiology Microbiology Microbiology Date/Time Source Procedure Growth Status 08/10/16 12:40 Cath/Port/Line/Picc Blood Culture - Preliminary NO GROWTH AFTER 24 HOURS Resulted 08/10/16 12:40 Cath/Port/Line/Picc Blood Culture - Preliminary NO GROWTH AFTER 24 HOURS Resulted 08/10/16 14:07 Urine, Clean Catch-Midstream Urine Culture - Preliminary CULTURE INITIATED - RESULTS PENDING Resulted Assessment & Plan Problems: (1) Rigors Status: Resolved (2) Follicular lymphoma Status: Chronic Assessment & Plan: Following with Dr. Altamirano and treating x 7 years, most recently multiple cycles of rituximab, significant abdominal adenopathy (3) Hypothyroidism Status: Chronic (4) Obesity (BMI 30.0-34.9) Status: Chronic (5) Constipation, chronic Status: Chronic Assessment & Plan: Typically uses daily coffee enemas at home, has prn laxatives ordered here (6) Headache Status: Acute Qualifiers: Headache type: tension-type Assessment & Plan: Improves slightly with APAP Plan/Intensity of Service Remains afebrile without leukocytosis or other SIRS criteria. Continue Vancomycin and Cefepime - BC neg at 24 hrs. Will need to discuss further with Dr. Aguayo. May need bowel motivation, declined this am. Electrolytes unremarkable. CT reviewed. Will discuss with attending. Code Status Full Code Hospital Course Summary Disclaimer The hospital course summary below is not to be considered part of the above Progress Note. Hospital Course Summary 08/10/16 Admit to hospitalist service, inpatient status, for suspected port infection. Sepsis markers were negative. He develops a rash with Levaquin. Will administer Cefepime and Vancomycin for now. BC were drawn in the ED. Consult pharmacy for Vancomycin dose. Consult Dr. Daniels to assess port. Repeat CT scan today due to abdominal tenderness, diarrhea. CT scan 06/21/16 showed: 1. Worsening disease status in the abdomen with enlarging retroperitoneal adenopathy and new areas of small bowel involvement. 2. Overall stable disease in the chest and neck. Medication reconciliation - pending. Need to review for other OTC medications. Start NS at 100 mL/hr to help reduce contrast load. Zofran/Dilaudid PRN. Recent diarrhea; check stool for infectious etiology. Consider more thorough rectal visualization given hx of daily coffee enemas. 08/11/2016 Continue monitoring inpatient due to concern for port infection; blood cultures < 24 hours currently with no growth as of yet Sepsis markers were negative. He develops a rash with Levaquin. Will continue Cefepime and Vancomycin for now. BC were drawn in the ED (pending, both peripheral and port cultures) Consulted pharmacy for Vancomycin dose. Will ask surgery to assess port if any positive cultures, currently no indication for removal, was placed by Dr. Cueto who has done many of his surgeries. Repeated abdominal CT yesterday due to abdominal tenderness, diarrhea. CT scan showed: 1. Worsening disease status in the abdomen with enlarging retroperitoneal adenopathy and new areas of small bowel involvement. 2. Overall stable disease in the chest and neck. --> repeat scan with final read pending but prelminary demonstrating increased LAD but no acute findings DC IVF and monitor on po intake today. Repeat surveillance labs in AM. Laxatives prn for chronic constipation PRN muscle relaxant for ABBOTT; sounds like a tension headache per his description 08/12/16 Remains afebrile without leukocytosis or other SIRS criteria. Continue Vancomycin and Cefepime - BC neg at 24 hrs. Will need to discuss further with Dr. Aguayo. May need bowel motivation, declined this am. Electrolytes unremarkable. CT reviewed. Will discuss with attending. DERRELL JORDAN BRADDISHER August 12, 2016 09:59
--- NOTE | 2016-08-12 13:55 | NUR ---
CM CM IN TO VISIT PT. CM EXPLAINED ROLE AND PROVIDED CONTACT INFORMATION. PT DENIES NEEDS AND IS AWARE TO CONTACT CM SHOULD NEEDS ARISE.
--- NOTE | 2016-08-12 14:09 | NUR ---
VANCOMYCIN CONSULT: Vancomycin Trough = 14.37 mcg/ml. Today's SCr = 1.0 mg/dl. Will give Vancomycin 1,250 mg IV q8hrs. Trough levels will be around 17 with this dose. Will continue to monitor and make adjustments accordingly. Thank you.
--- NOTE | 2016-08-12 15:08 | DI ---
Indication: ITS.REASON: lymphoma staging f/u PROCEDURE: CT CHEST W/O CONTRAST: Encounter: Subsequent Comparison: Chest CT dated June 21, 2016 Technique: Axial CT images were performed through the chest without intravenous contrast. Coronal and sagittal two-dimensional reformats. Automated Exposure Control and Iterative Reconstruction dose reducing techniques were utilized. Findings: Stable areas of scarring in the lung bases. No consolidative pneumonia, pleural effusion or pneumothorax. No new pulmonary nodules or masses. The central airways are patent. Stable left supraclavicular adenopathy. Slight worsening in right paratracheal adenopathy with a left on image #17 now measuring 0.9 cm in short axis compared to 0.7 cm previously. Heart size is normal. No pericardial effusion. Posterior mediastinal adenopathy is also slightly worsened with a para-aortic node on image #44 measuring 1.7 cm in short axis compared to 1.5 cm on the prior study. Smaller more inferior posterior mediastinal lymph nodes are grossly stable. Large subdiaphragmatic retroperitoneal lymph node on image #57 is subtly larger now 3.9 cm short axis compared to 3.8 cm previously. Abdominal adenopathy is better evaluated on the recent dedicated CT abdomen. No acute changes appreciated. Bone windows show no lytic or blastic osseous lesions. Impression: Slight interval worsening in mediastinal and upper abdominal adenopathy compared to May 2016. .
--- NOTE | 2016-08-12 15:14 | DI ---
Indication: ITS.REASON: lymphoma staging f/u PROCEDURE: CT NECK W/O CONTRAST: Encounter: Subsequent Technique: Axial noncontrast CT imaging through the neck was performed with coronal and sagittal two-dimensional reformats. Automated Exposure Control and Iterative Reconstruction dose reducing techniques were utilized. Comparison: CT neck dated June 21, [address] dated January 05, 2016 Findings: Small left supraclavicular nodes appear grossly stable. Right submandibular mass is slightly larger at 2.3 cm short axis compared to 2.1 cm previously. Additional right cervical level two and three adenopathy is similar in overall size to the comparison. Goring Cutter left cervical level 2B lymph node image #29 measures 1 cm in short axis compared to 0.9 cm previously. Left occipital subcutaneous mass is slightly larger at 3.1 cm diameter compared to 2.8 cm previously. Right cervical level 1B lymph nodes are stable. No new foci of lymphadenopathy appreciated. No mucosal based masses. Bone windows are unchanged with small lucent foci noted in several cervical vertebrae. These are unchanged dating back to December 2015. Impression: Overall slight interval worsening in multifocal lymphadenopathy in the neck. .
--- NOTE | 2016-08-12 15:32 | DSPDOC ---
DERRELL JORDAN MARKETING PROPOSAL COORDINATOR 08/12/16 1519: General Date Date DATE: 08/12/16 TIME: 15:09 Attending Physician Lana Wheeler MD Admitting Physician Lana Wheeler MD Consulting Physician Ct Lopez MD Admitting Diagnosis sepsis Discharge Diagnosis Occult infection suspected Procedures Port accessed Laboratory Laboratory Tests Test 08/11/16 04:03 08/12/16 04:07 08/12/16 12:48 White Blood Count 5.3T/MM3 (4.5-11.0) 4.7T/MM3 (4.5-11.0) Red Blood Count 4.47M/MM3 (4.50-5.90) 4.33M/MM3 (4.50-5.90) Hemoglobin 13.2GM/DL (13.5-17.5) 12.8GM/DL (13.5-17.5) Hematocrit 37.4% (41-53) 35.9% (41-53) Mean Corpuscular Volume 83.7UM3 (80-100) 82.9UM3 (80-100) Mean Corpuscular Hemoglobin 29.5UUG (26-34) 29.6UUG (26-34) Mean Corpuscular Hemoglobin Concent 35.3GM/DL (31-37) 35.7GM/DL (31-37) RDW Standard Deviation 38.5FL (36.9-50.2) 37.7FL (36.9-50.2) Platelet Count 219T/MM3 (130-400) 197T/MM3 (130-400) Mean Platelet Volume 9.6UM3 (9.4-12.4) 9.5UM3 (9.4-12.4) Immature Granulocyte % (Auto) 0.2% (0.0-0.5) 0.2% (0.0-0.5) Neutrophils (%) (Auto) 77.6% (33-66) 63.3% (33-66) Lymphocytes (%) (Auto) 11.2% (23-45) 18.5% (23-45) Monocytes (%) (Auto) 8.1% (0-9.0) 10.3% (0-9.0) Eosinophils (%) (Auto) 2.7% (0-4) 7.3% (0-4) Basophils (%) (Auto) 0.2% (0-2) 0.4% (0-2) Absolute Immature Granulocyte (auto 0.01T/MM3 (0.00-0.03) 0.01T/MM3 (0.00-0.03) Absolute Neutrophils (auto) 4.1T/MM3 (1.8-7.7) 2.9T/MM3 (1.8-7.7) Absolute Lymphocytes (auto) 0.6T/MM3 (1-4.8) 0.9T/MM3 (1-4.8) Absolute Monocytes (auto) 0.4T/MM3 (0-0.8) 0.5T/MM3 (0-0.8) Absolute Eosinophils (auto) 0.1T/MM3 (0-0.5) 0.3T/MM3 (0-0.5) Absolute Basophils (auto) 0.0T/MM3 (0-0.2) 0.0T/MM3 (0-0.2) Turbidity < 20 (0-20) < 20 (0-20) Sodium Level 143MEQ/L (134-144) 143MEQ/L (134-144) Potassium Level 4.2MEQ/L (3.6-5) 4.0MEQ/L (3.6-5) Chloride Level 109MEQ/L (98-107) 110MEQ/L (98-107) Carbon Dioxide Level 24MEQ/L (22-30) 25MEQ/L (22-30) Anion Gap 10MEQ/L (5-15) 8MEQ/L (5-15) Blood Urea Nitrogen 15.0MG/DL (9-20) 15.0MG/DL (9-20) Creatinine 1.0MG/DL (0.8-1.5) 1.0MG/DL (0.8-1.5) Glomerular Filtration Rate Calc 77 77 BUN/Creatinine Ratio 15RATIO (6-26) 15RATIO (6-26) Glucose Level 115MG/DL (75-110) 123MG/DL (75-110) Calculated Osmolality 277MOSM/KG (261-280) 277MOSM/KG (261-280) Calcium Level 8.7MG/DL (8.4-10.2) 8.5MG/DL (8.4-10.2) Phosphorus Level 2.6MG/DL (2.5-4.5) 3.1MG/DL (2.5-4.5) Icterus Index < 2 (0-7) < 2 (0-7) Albumin 3.6G/DL (3.5-5.0) 3.5G/DL (3.5-5.0) Chemistry Specimen Hemolysis < 15 (0-25) < 15 (0-25) Vancomycin Level Trough 14.37UG/ML (15-20) Microbiology Microbiology Date/Time Source Procedure Growth Status 08/10/16 12:40 Cath/Port/Line/Picc Blood Culture - Preliminary NO GROWTH AFTER 48 HOURS Resulted 08/10/16 12:40 Cath/Port/Line/Picc Blood Culture - Preliminary NO GROWTH AFTER 48 HOURS Resulted 08/10/16 14:07 Urine, Clean Catch-Midstream Urine Culture - Final NO GROWTH AFTER [address] chest Slight interval worsening in mediastinal and upper abdominal adenopathy compared to May 2016 CT neck Overall slight interval worsening in multifocal lymphadenopathy in the neck. CT abdomen/pelvis Overall slight worsening in mesenteric infiltration which is probably due to the patient's lymphoma with extensive retroperitoneal and mesenteric adenopathy. No evidence of an acute small bowel obstruction CXR - No acute cardiopulmonary disease KUB - Nonobstructive nonspecific bowel gas pattern History of Present Illness Manish Brown is a 55 yr old male with a 7-yr hx of follicular lymphoma. He had been receiving Rituxan, but a repeat CT scan on 06/21/16 showed disease progression. Rituxan was discontinued and he had planned to start new treatment on 08/15/[address] Aguayo. Manish had been in fairly good health, but in the morning of 08/10/16, he developed rigors and chills. He states that he had foot and leg cramps last night, and took some OTC magnesium. He covered himself up in blankets and wore his winter coat to run some errands in town. He had some pain in both of his thighs also. He also reports RLQ pain and 1 episode of diarrhea yesterday, but none since. This was not in conjunction with his daily coffee enema, which he does every morning. With lymphoma, he often gets brief bursts of pain, but typically in his lower back or suprapubic area. He was reminded of when he had a port infection a few years ago - about an hour after his port was "flushed", he developed a reaction with chills and shaking. His new port was placed by Dr. Cueto in October,. Manish called Dr. Lopez, aws solution architect for Dr. Aguayo, and was instructed to go to the ED. VSS were stable with RR of 20 noted as only SIRS criteria. Labs showed a WBC of 10 with a left shift (neut 88%, bands 5%). Chemistries were essentially unremarkable. Lactate, procalcitonin, and UA were negative. CXR and KUB failed to show acute processes. Dr. Lopez was contacted and recommended admission and IV abx. He received 1L of IVF and Cefepime and Vancomycin were ordered. Dr. Hansen was notified and the patient was admitted for further workup. Hospital Course Mr. Brown was admitted to inpatient status on 08/10/16 for suspected port infection. Cefepime and Vancomycin were started after BC were drawn. Sepsis markers were negative. CT abdomen was repeated, showing slight worsening in mesenteric infiltration. Dehydration was suspected, and he received IVF. These were discontinued on hospital day #2 as the patient was eating/drinking well. WBC decreased to 5.2 on the second day. He remained afebrile throughout his course. Dr. Aguayo was consulted, requested CT neck/chest prior to discharge, both of which demonstrated slightly worse disease. BC were negative at 48 hours. The patient did not have recurrence of abdominal pain, back pain, or diarrhea during hospitalization and was able to be discharged home on 08/12/16. Arrangements were made for outpatient infusion to continue IV Vanco and cefepime through his port with stop date of 08/16/16 (discussed with Dr. Aguayo) . Will have pharmacy manage Vanco dosin gm BID + pharm consult. Check BMP and CBC on 08/14/16. F/U with Dr. Aguayo on Friday. This is a general summation of the patient's hospital course. For more details, please refer to the complete medical record. Time spent in DC: 35 min. Problems: (1) Rigors Status: Resolved (2) Follicular lymphoma Status: Chronic Assessment & Plan: Following with Dr. Altamirano and treating x 7 years, most recently multiple cycles of rituximab, significant abdominal adenopathy (3) Hypothyroidism Status: Chronic (4) Obesity (BMI 30.0-34.9) Status: Chronic (5) Constipation, chronic Status: Chronic Assessment & Plan: Typically uses daily coffee enemas at home, has prn laxatives ordered here (6) Headache Status: Acute Assessment & Plan: Improves slightly with APAP Code Status Full Code Home Meds Active Scripts Cefepime HCl/Dextrose, Iso-Osm (Cefepime 2 gm Injection) 2 Gm/100 Ml Froz.piggy , 2 GM IV BID for 4 Days, #5 twice a day beginning in the evening of 08/12/16 and ending in the evening of 08/16/16 Prov:DERRELL JORDAN MARKETING PROPOSAL COORDINATOR 08/12/16 Vancomycin/0.9 % Sod Chloride (Vancomycin 1 G/100Ml-0.9% NaCl) 1 Gm/100 Ml Plast..bag, 2 GM IV BID for 4 Days, #5 BAG twice a day, starting in the evening of 08/12/16 and ending in the evening of 08/16/16 Prov:DERRELL JORDAN MARKETING PROPOSAL COORDINATOR 08/12/16 Reported Medications Allopurinol (Allopurinol) 300 Mg Tablet, 300 MG PO DAILY 08/10/16 Acyclovir (Acyclovir) 400 Mg Tablet, 400 MG PO BID 10/31/14 Liothyronine Sodium (Liothyronine Sodium) 5 Mcg Tablet, 5 MCG PO DAILY 10/20/14 Face to Face Encounter I met with patient on the day of dismissal and discussed follow up appointments , medications, and safety plan. Discharge Disposition DC home, stable with Rx for outpatient infusion Copies To 1: RHODA AGUAYO Documentation Requirements Documenting Diagnosis Anemia, BMI Low or High Anemia Anemia Acuity: Chronic BMI Low or High Assoc. dx for low or high BMI: Obesity 30-34.9 LANA WHEELER MD 08/12/16 1611: General Attending Physician Seen and examined patient. Agree with above statements by nurse practitioner Derrell Jordan. I've discussed with Dr. Aguayo the patient's overall status and possibility that patient may be required to remove the ilene cath. Discussed this with the patient as well and he is aware that this may be the eventual necessary outcome. However he is feeling quite well and willing to continue infusion therapy on an outpatient basis. Dr. Aguayo is scene and agreed. We will continue vancomycin on an outpatient basis as well as modified Cefepime. Cefepime and vancomycin can be discontinued based upon final culture results. Patient follow-up with Dr. Aguayo in oncology Hospital Course Home Meds Active Scripts Cefepime HCl/Dextrose, Iso-Osm (Cefepime 2 gm Injection) 2 Gm/100 Ml Froz.piggy , 2 GM IV BID for 4 Days, #5 twice a day beginning in the evening of 08/12/16 and ending in the evening of 08/16/16 Prov:DERRELL JORDAN APRN 08/12/16 Vancomycin/0.9 % Sod Chloride (Vancomycin 1 G/100Ml-0.9% NaCl) 1 Gm/100 Ml Plast..bag, 2 GM IV BID for 4 Days, #5 BAG twice a day, starting in the evening of 08/12/16 and ending in the evening of 08/16/16 Prov:DERRELL JORDAN MARKETING PROPOSAL COORDINATOR 08/12/16 Reported Medications Allopurinol (Allopurinol) 300 Mg Tablet, 300 MG PO DAILY 08/10/16 Acyclovir (Acyclovir) 400 Mg Tablet, 400 MG PO BID 10/31/14 Liothyronine Sodium (Liothyronine Sodium) 5 Mcg Tablet, 5 MCG PO DAILY 10/20/14 Copies To 1: RHODA AGUAYO KAREN D APRN August 12, 2016 15:19 LANA WHEELER MD August 12, 2016 16:11
[2016-08-12] MEDS ORDERED: CEFE2FRO IV (15:39)
[2016-08-12] MEDS ORDERED: VANC1PLA10 IV (15:39)
--- NOTE | 2016-08-12 16:43 | NUR ---
status/ dc Pt A/O x3, V/S stable on RA. Pt showered and dressed in own clothes. Denies pain at this time, no PRN meds. PAC flushing and aspirating well. DC to home with O.P. infusion therapy till friday. Pt has scripts and times to come back to O.P., no questions at this time for infusions, with 1st one tonight. PAC to remain accessed, flushed and has curro cap on. Sent with pt wraps to apply over PAC during showers. DC instructions given to both pt and , walked to front door at 1620.
[2016-08-13] MEDS ORDERED: VANCOMYCIN 1,250 MG in NORMAL SALINE 250 ML IV SCH (01:00)
--- NOTE | 2016-08-13 06:24 | PNPDOC ---
Subjective Date DATE: 08/13/16 TIME: 06:16 Late entry Patient seen at 1:00 pm on 08/12 Fever and elevated WBC on Friday. History of Port a cath infection with replacement. Port accessed on 08/09/16. WBC increased on 08/10 and now much better after antibiotics. Wants to go home. Objective Vital Signs Height (Feet): 5 Height (Inches): 8.00 Weight (Kilograms): 95.600 General Alert, Cooperative, No Acute Distress Eyes (Brief) Eyes: FOUND: PERRL, NOT FOUND: scleral icterus ENMT (Brief) ENMT: FOUND: mucosa moist, other (Mass left cheek) Neck (Brief) Neck: FOUND: adenopathy Respiratory (Brief) Respiratory: FOUND: clear all garcia, equal bilaterally Cardiovascular (Brief) Cardiac: FOUND: regular rhythm Abdomen (Brief) Abdominal: FOUND: soft, NOT FOUND: distended, hepatosplenomegaly, tender Neurologic (Brief) NOT FOUND: cranial 2-12 intact Psychiatric (Brief) FOUND: alert, attentive, normal affect, oriented Laboratory Laboratory Tests Test 08/12/16 12:48 08/12/16 16:14 Vancomycin Level Trough 14.37UG/ML Stool Cyclospora species Detection Negative Stool Rotavirus A PCR Negative Stool Adenovirus (PCR) Negative Stool Astrovirus (PCR) Negative Stool Campylobacter PCR Negative Stool C. difficile Toxin (PCR) Negative Stool Cryptosporidium PCR Negative Stool E. coli Shiga Toxins Negative Stool E coli O157 PCR N/a Stool Enterotoxigenic Ecoli PCR Negative Stool Enteropathogenic E. coli (PCR N/a Stool Enteroaggregative E. coli PCR Negative Stool Entamoeba (PCR) Negative Stool Giardia Lamblia PCR Negative Stool Salmonella PCR Negative Stool Sapovirus (PCR) Negative Stool Plesiomonas shigelloides PCR Negative Stool Shigella/EIEC (PCR) Negative Stool Yersinia enterocolitica (PCR) Negative Stool Vibrio (PCR) Negative Stool Vibrio cholera (PCR) Negative Stool Norovirus GI/GII PCR Negative Microbiology Microbiology Date/Time Source Procedure Growth Status 08/10/16 12:40 Cath/Port/Line/Picc Blood Culture - Preliminary NO GROWTH AFTER 48 HOURS Resulted 08/10/16 12:40 Cath/Port/Line/Picc Blood Culture - Preliminary NO GROWTH AFTER 48 HOURS Resulted 08/10/16 14:07 Urine, Clean Catch-Midstream Urine Culture - Final NO GROWTH AFTER 48 HOURS Complete Assessment & Plan Assessment Progressive follicular lymphoma Evaluation of next therapy. Probably revlamid and anti CD 20. Working on clinical trial vs revlamid and Gadvyza. Fever and leukocytosis after port flush. Would continue emperic antibiotic coverate till 08/16. Can do as out patient Restaging CT prior to therapy Plan/Intensity of Service CT Out patient antibiotics. Code Status Full Code Hospital Course Summary Disclaimer The visit summary below is not to be considered part of the above Progress Note. Hospital Course Summary Mr. Brown was admitted to inpatient status on 08/10/16 for suspected port infection. Cefepime and Vancomycin were started after BC were drawn. Sepsis markers were negative. CT abdomen was repeated, showing slight worsening in mesenteric infiltration. Dehydration was suspected, and he received IVF. These were discontinued on hospital day #2 as the patient was eating/drinking well. WBC decreased to 5.2 on the second day. He remained afebrile throughout his course. Dr. Aguayo was consulted, requested CT neck/chest prior to discharge, both of which demonstrated slightly worse disease. BC were negative at 48 hours. The patient did not have recurrence of abdominal pain, back pain, or diarrhea during hospitalization and was able to be discharged home on 08/12/16. Arrangements were made for outpatient infusion to continue IV Vanco and cefepime through his port with stop date of 08/16/16 (discussed with Dr. Aguayo) . Will have pharmacy manage Vanco dosin gm BID + pharm consult. Check BMP and CBC on 08/14/16. F/U with Dr. Aguayo on Friday. This is a general summation of the patient's hospital course. For more details, please refer to the complete medical record. Time spent in DC: 35 min. RHODA AGUAYO August 13, 2016 06:19
== END 2016-08-12 16:27 | disposition home or self-care (01) | DRG 842 ==
LOC: ED 11:44 → MED 15:18
PROVIDERS: ADMIT Internal Medicine; ATTEND Family Medicine
DX: C82.91 Follicular lymphoma, unspecified, lymph nodes of head, face, and neck (principal); R68.83 Chills (without fever); R68.89 Other general symptoms and signs; E03.9 Hypothyroidism, unspecified; I08.1 Rheumatic disorders of both mitral and tricuspid valves; E66.9 Obesity, unspecified; G44.209 Tension-type headache, unspecified, not intractable; K59.00 Constipation, unspecified; E83.52 Hypercalcemia; Z68.32 Body mass index [BMI] 32.0-32.9, adult; Z86.73 Personal history of transient ischemic attack (TIA), and cerebral infarction without residual deficits
CPT/HCPCS: 36415; 80053; 80069; 80202; 81003; 83605; 83690; 84145; 85025; 87040; 87086; 87507; 93005; 94762; 96361; 96374; 96375

== ENCOUNTER → 2016-08-23 | Outpatient (CLI) | payer OTHER ==
[~2016-08-23] MED LIST changes: +ALLO300T2 PO; +CEFE2FRO IV; +VANC1PLA10 IV
--- NOTE | 2016-08-23 17:01 | DI ---
Indication: ITS.REASON: M79.605 Pain in left leg PROCEDURE: US VENOUS DUPLEX, LOWER EXT LT: Encounter: Initial Comparison: None Technique: Color Doppler duplex and grayscale sonographic imaging of the left lower extremity was performed. Findings: There is no evidence for acute deep venous thrombosis in the left thigh. Specifically, serial graded compression was performed from the inguinal ligament to the popliteal bifurcation, on the left thigh, demonstrating appropriate compressibility of the deep venous system. In addition, color and pulsed Doppler demonstrate appropriate spontaneous flow, variation with respiration, and augmentation with calf compression. At the ankle, normal flow is identified in the posterior tibial veins; these vessels are also normal in caliber. No sonographic abnormality in the area of palpable concern in the calf. Impression: No evidence of acute DVT in the left lower limb. .
== END ==
LOC: IMA 16:28
PROVIDERS: ATTEND Internal Medicine Hematology & Oncology
DX: M79.605 Pain in left leg (principal)

== ENCOUNTER 2017-09-04 15:29 | Observation (INO) ==
[2017-09-04] MEDS ORDERED: MORPHINE SULFATE 4mg INJECTION IVP PRN (16:14)
[2017-09-04] MEDS ORDERED: BISACODYL 10 MG SUPPOSITORY RECTALLY PRN (16:14)
[2017-09-04] MEDS ORDERED: ONDANSETRON 4 MG/2 ML INJECTION IVP PRN (16:14)
[2017-09-04] MEDS ORDERED: SENNA + DOCUSATE TABLET PO PRN (16:14)
[2017-09-04] MEDS: Oxycodone *IR* 15 MG TABLET PO PRN ×2 (16:46→22:59)
--- NOTE | 2017-09-04 17:10 | History & Physical Report ---
History of Present Illness Date: 09/04/17 Chief complaint: Abdominal pain HPI: Sukhwinder Brown is a 56 y/o male with a history of stage III follicular lymphoma with recent progression of symptoms. He was diagnosed in 2009, and responded well to 4 cycles of Rituxan followed by maintenance therapy. He began a clinical trial with lenalidomide + Rituxan in August, after progression was identified, but this was discontinued in June, due to CT evidence of progressive disease. For the last couple of weeks, he's been having increasing abdominal pain, bloating, gassiness, indigestion, and anorexia. His added that he hasn't been drinking enough fluids. The pain started as mild but for the last week it has been more severe. It's most pronounced in his RUQ but his entire abdomen is painful and he's also developed pain in his back. He's tried TUMS, Gas-X, and ASA to help his pain. In fact, for the last 2-3 days he's been taking about 20 ASA 325 mg tablets per day. He has had worsening tinnitus compared to normal, and has a sensation that his ears are popping. He has a runny nose which he thinks might be allergies. He has chronic lymph node swelling in his neck and submandibular glands. He denies vertigo, dizziness, focal weakness, chest pain, dyspnea, cough/congestion, n/v/d, hematochezia or melena, abnormal bruising/bleeding, dysuria or urinary frequency, leg swelling, joint/muscle pain. He saw Dr. Aguayo on 09/04/17 and had labs [address] CT scan of his chest/abdomen/pelvis. The CT showed Worsening metastatic disease with enlarging posterior mediastinal, retroperitoneal and mesenteric lymphadenopathy. WBC was 4.1, hgb 13.8, plt 218; CMP unremarkable except for mild hypernatremia (145). It was decided that with his increasing pain and progression of symptoms the patient should be admitted to the hospital for pain management and initiation of R-CHOP. Review of Systems All systems PM: 10-point ROS was reviewed, no additional remarkable complaints except - EENMT Eyes: Present: requires corrective lenses - Integumentary/Breasts Integumentary: Present: pruritus (associated with clinical trial medications) - Psychiatric Psychiatric: Absent: anxiety - Endocrine Endocrine: Absent: palpitations Past Medical History Medical History Updates: TIA 2008. Follicular non-Hodgkin lymphoma stage III. Common variable immunodeficiency. Basal cell carcinoma - treated. Hypothyroidism. MSSA bacteremia 09/2014. Mild MR, mild-moderate TR, moderate PH , mild NH Surgical History: This patient has had previous operations and procedures as follows: 1. Removal of wisdom teeth in 1986 or 1987 at [facility] at [place], [place]. 2. Removal of a skin carcinoma at left shoulder in [address] Benítez at his office at [place], [place]. 3. Small bowel capsule endoscopy study on 01/13/[address] Chance Berger at his office at [place], [place]. Findings were normal. 4. Hand-assisted laparoscopic excision of mesenteric lymph node on 05/25/[address] Cueto at [facility] at [place], [place]. The pathology report diagnosis on the mesenteric lymph node was follicular lymphoma. 5. Bone marrow aspiration and biopsy on 07/14/[address] Cueto at [facility] at [place], [place]. The pathology report showed normocellular marrow. There was no evidence of bone marrow involvement with lymphoma or lymphocytosis. There was no significant dysplasia. There was no metastatic carcinoma. 6. Biopsy of subcutaneous mass at right postauricular area on 03/25/[address] Ogden at [facility] at [place], [place]. The pathology report diagnosis on the biopsy did show follicular lymphoma. 7. Insertion of PowerPort vascular access device on 05/05/[address] Cueto at [facility] at [place], [place]. Postoperative diagnosis was follicular lymphoma. 8. Excision of deep cervical lymph node at right side of neck and removal of PowerPort vascular access device on 11/01/[address] Cueto at [place], [place]. Pathology report diagnosis on the right cervical lymph node was follicular lymphoma. Culture of the catheter tip from the PowerPort vascular access device did grow Staphylococcus aureus. The Staphylococcus aureus was sensitive to all antibiotics. 9. Transesophageal echocardiogram on 11/11/[address] Hui at [facility] at [place], [place]. This transesophageal echocardiogram showed no evidence of vegetations. There was no intracardiac thrombus or mass. The patient had a normal left ventricular systolic function with an ejection fraction of 60%. There was a mild mitral regurgitation. There was mild tricuspid regurgitation. Discharge diagnosis for the hospitalization at [facility] from 11/10/14 to was follicular lymphoma. The patient was admitted to the hospital with abdominal pain due to bulky intraabdominal lymphadenopathy. The patient received treatment with intravenous dexamethasone and intravenous Rituxan during his hospitalization, and the abdominal pain resolved. 10. Implantation of Power Port vascular access device on 11/22/[address] Cueto at [facility] at [place], [place]. Postoperative diagnosis was follicular lymphoma. 11. Basal cell carcinoma to right neck treated with curettage and electrodesiccation in Jul, 2015. 12. Colonoscopy 01/07/17 showing internal hemorrhoids (Dr. Cueto). 13. Bone marrow biopsy on 08/21/16. The patient had other previous serious illnesses as follows: 1. The patient had an episode of mononucleosis in 1995. 2. He had influenza treated with Tamiflu in March,. Family History Updates: Father - of lung cancer at age 54 Family History: As Above - Social History Smoking status: Never smoker Substance use type: does not use, marijuana (Very, very remote history >40 years ago) Alcohol intake frequency: former alcohol drinker Household members: spouse, family Current occupational status: employed Current occupation: Analytics at [employer] Medications Medication Instructions Recorded Confirmed Type Liothyronine [Cytomel] 5 mcg PO DAILY #0 10/20/14 08/13/17 History Allopurinol 300 mg PO DAILY #0 08/10/16 08/13/17 History Zovirax (acyclovir) 400 mg tablet 400 mg PO DAILY #0 tab 01/02/17 08/13/17 History Bactrim DS (sulfamethoxazole 800 1 tab PO BID 08/12/17 08/13/17 History mg-trimethoprim 160 mg) tablet Guaifenesin [Mucinex] 200 mg PO PRN PRN 08/13/17 08/13/17 History Allergies Allergy/AdvReac Type Severity Reaction Status Date / Time levofloxacin Allergy Intermediate Itching Verified 08/13/17 12:32 doxycycline Allergy Mild ITCHY Verified 08/13/17 12:32 Exam Vital Signs: Temperature 97.1 F 09/04/17 15:46 Pulse Rate 67 09/04/17 16:23 Respiratory Rate 18 09/04/17 16:46 Blood Pressure 131/85 09/04/17 15:46 Pulse Oximetry 97 09/04/17 16:23 Height/Weight/BMI: Height 1.7 m Weight 87.1 kg Body Mass Index 30.0 - Constitutional Present: no acute distress, moderate distress (at times he grabs his abdomen and winces in pain), well nourished, well developed - Routine HEENT Exam Head: Present: normocephalic Eye: Present: PERRL. Absent: conjunctival icterus, scleral injection ENT: Present: oropharynx clear - Routine Neck Exam Present: lymphadenopathy (cervical and submandibular) - Routine Respiratory Exam Present: CTA bilaterally - Routine Cardiovascular Exam Present: RRR, S1, S2 - Routine Abdominal Exam Present: tenderness (tender diffusely with guarding to RUQ, epigastric, periumbilical, and LUQ), distended. Absent: normoactive bowel sounds ( hyperactive) - Routine Extremities Exam Present: no edema, pulses intact - Routine Skin Exam Present: intact, dry, warm - Routine Neurological Exam Present: alert, oriented X3, CN II-XII intact, moving all extremities, vision grossly intact, hearing grossly intact, normal speech. Absent: sensory deficit , motor deficit, altered mental status, facial asymmetry - Routine Psychiatric Exam Present: normal affect, normal thought process, cooperative Results - Imaging and Cardiology CT scan - abdomen Status: image reviewed by me Additional comments: Date of Exam: 09/04/17 PROCEDURE: CT chest/abd/pelvis wo con: Comparison: PET/CT dated August 06, [address] chest abdomen and pelvis dated July 25, 2017 Findings: Chest: The lungs are stable without focal pneumonia, pleural effusion or pneumothorax. No new pulmonary nodules or masses. The central airways are patent. Right paratracheal nodes are grossly stable. Previously measured left posterior mediastinal node adjacent to the aorta is larger now measuring 1.6 x 1.3cm compared to 1.4 x 1.4 cm. Paravertebral soft tissue on the right side at this level is grossly stable. Retrocrural nodes inferior to this are larger. Other Sports Official node on axial image 58 now measures 1.5 cm in short axis compared to 1.1 cm. Heart size is stable. No pericardial effusion. No axillary adenopathy. Abdomen/pelvis: The unenhanced contours of the liver are grossly normal. Gallstones seen in the gallbladder. The spleen size is normal. The pancreas is normal. Right adrenal calcifications. Kidneys are stable. Left retroperitoneal lymph node seen on axial image #63 has grown at 6.4 x 5.8 cm compared to 6.8 x 5.2 cm. Pericaval lymph node on image #88 now measures 5.4 x 5.6 cm, increased from 5.3 x 5.1 cm. Right mesenteric mass now seen on axial image #78 measures 9.5 x 7.1 cm compared to 9.3 x 5.1 cm. Central mesenteric mass on axial image # 99 measures 10.3 x 6.1 cm compared to 7.3 x 4.2 cm. Additional mesenteric and retroperitoneal lymph nodes show similar increases in size. The bladder is grossly normal. No free fluid or evidence of bowel obstruction. Bone windows are stable without focal lytic or blastic osseous lesions. Impression: Worsening metastatic disease with enlarging posterior mediastinal, retroperitoneal and mesenteric lymphadenopathy. Assessment and Plan Assessment and Plan: Assessment Follicular non-Hodgkin lymphoma stage III with progression of disease Abdominal pain Possible ASA toxicity Hypernatremia, POA TIA 2008 Common variable immunodeficiency Basal cell carcinoma - treated Hypothyroidism MSSA bacteremia 09/2014 Mild MR, mild-moderate TR, moderate PH, mild NH Plan Admit, observation status under the hospitalist service. Consult Dr. Aguayo - suspect he will need repeated echo since last known was in 2014 prior to beginning chemo. Steroids were given prior to admission. Check ASA level and lipase. Start Protonix BID for excessive ASA ingestion over the last 2-3 days (approx 6.5 gm each day) Start NS at 100 mL/hr. Pain control: Morphine IV and oxycodone PO PRN. Zofran/Reglan PRN nausea. Discussed with RN and Dr. Hogan. Outside records requested/reviewed. DVT Prophylaxis: SCD's GI Prophylaxis: Protonix Resuscitation Status: Full Code - Physician Narrative Narrative: Date: 09/04/17 Time: 1655 S: Pt reports pain is much better after getting pain medication. Abd pain has been present for a couple of weeks and has no associations. Its diffuse and sharp in nature. Denies any other associated sx's such as n/v/d, f/c, cp or sob. O: Gen: AAOx3, no acute distress Abd: soft, non-tender Ext: no edema A/P: Pt currently looks comfortable, has hx of follicular cancer that may be transforming to large b cell. Pt will start on chemo regimen tomorrow and will be following. Will manage chronic conditions and monitor while chemo is started. Hospital Course Summary Disclaimer: The visit summary below is not to be considered part of the above Progress Note. Hospital Course: 09/04 Admit, observation status under the hospitalist service. Consult Dr. Aguayo - suspect he will need repeated echo since last known was in 2014 prior to beginning chemo. Steroids were given prior to admission. Check ASA level and lipase. Start Protonix BID for excessive ASA ingestion over the last 2-3 days (approx 6.5 gm each day) Start NS at 100 mL/hr. Pain control: Morphine IV and oxycodone PO PRN. Zofran/Reglan PRN nausea. Discussed with RN and Dr. Hogan. Outside records requested/reviewed. Addendum entered and electronically signed by Augusta Lombardo, ALVARO 09/04/17 17: 58: Discussed with Dr. Aguayo - concerned for diffuse large B cell lymphoma ( transformation of follicular lymphoma into a higher grade lymphoma)
[2017-09-04] MEDS: NS 1,000 ML IV SCH (17:42)
[2017-09-04] MEDS ORDERED: METOCLOPRAMIDE 10mg/2ml INJECTION IVP PRN (17:50)
[2017-09-04] MEDS ORDERED: DEXAMETHASONE 4 MG TABLET PO ONE (19:15)
[2017-09-04] MEDS ORDERED: PANTOPRAZOLE 40 MG INJECTION IVP SCH (21:00)
[2017-09-04] MEDS ORDERED: NON-FORMULARY MEDICATION 1 EACH EACH (Acyclovir [Acyclovir] 400 MG) PO SCH (22:36)
[2017-09-04] MEDS: ALLOPURINOL 300 MG TABLET PO SCH (22:50)
[2017-09-04] MEDS: LIOTHYRONINE 5 MCG TABLET PO SCH (22:52)
[2017-09-05] MEDS: NS 1,000 ML IV SCH (03:11)
[2017-09-05] MEDS: ACYCLOVIR 200 MG CAPSULE PO SCH ×2 (03:12→20:30)
[2017-09-05] MEDS: PANTOPRAZOLE 40 MG TABLET PO SCH (06:30)
--- NOTE | 2017-09-05 08:13 | Progress Note ---
- Date 09/05/17 Subjective: Sukhwinder states that his abdominal pain is much better, and at the moment he is pain free in his abdomen. He took 15 mg of oxycodone last night and felt like he was loopy. He now has a left occipital headache. He denies nausea. He denies weakness or dizziness. Objective Vital signs: Temperature 96.1 F L 09/04/17 23:38 Pulse Rate 65 09/04/17 23:38 Respiratory Rate 16 09/04/17 23:38 Blood Pressure 118/73 09/04/17 23:38 Pulse Oximetry 94 09/04/17 23:38 Height/Weight/BMI: Height 1.7 m Weight 87.1 kg Body Mass Index 30.0 - Constitutional Present: no acute distress, well nourished, well developed - Routine HEENT Exam Head: Present: normocephalic Eye: Present: PERRL. Absent: conjunctival icterus, scleral injection ENT: Present: oropharynx clear Comments: left occipital tenderness - Routine Respiratory Exam Present: CTA bilaterally - Routine Cardiovascular Exam Present: RRR, S1, S2, murmur (? soft systolic murmur) - Routine Abdominal Exam Present: normoactive bowel sounds, non tender, distended (improved from yesterday) - Routine Extremities Exam Present: no edema - Routine Back/Spine/Pelvis Exam Back/Spine: Present: full ROM - Routine Musculoskeletal Exam Musculoskeletal: Present: moving extremities well - Routine Skin Exam Present: intact, dry, warm - Routine Neurological Exam Present: alert, oriented X3, normal speech - Routine Psychiatric Exam Present: normal affect, normal thought process, cooperative Results - Labs CBC & Chem 7: 09/05/17 04:22 09/05/17 04:22 Assessment and Plan Assessment and Plan: Assessment Follicular non-Hodgkin lymphoma stage III with progression to diffuse large B cell lymphoma Abdominal pain Possible ASA toxicity - ruled out Hypernatremia, POA - resolved TIA 2008 Common variable immunodeficiency Basal cell carcinoma - treated Hypothyroidism MSSA bacteremia 09/2014 Mild MR, mild-moderate TR, moderate PH, mild NV Plan Echo done this am; chemo orders per Dr. Aguayo. Planning to start R-CHOP. Change oxycodone to [place]; heating pack PRN. ASA level was WNL. Lipase neg. Abdominal pain resolved. Hypernatremia resolved. DVT Prophylaxis: SCD's GI Prophylaxis: Protonix Resuscitation Status: Full Code - Physician Narrative Narrative: Date: 09/05/17 Time: 0812 S: Pt doing well this am, abd pain is well controlled. Reports feeling a bit "lupey" and sleepy with the oxycodone doses. O: Gen: AAOx3, no acute distress Cards: RRR without mumurs Lungs: CTAB without wheezing A/P: -Agree with switch to norco, will cont. to monitor along with oncology. Hospital Course Summary Disclaimer: The visit summary below is not to be considered part of the above Progress Note. Hospital Course: 09/04 Admit, observation status under the hospitalist service. Consult Dr. Aguayo - suspect he will need repeated echo since last known was in 2014 prior to beginning chemo. Steroids were given prior to admission. Check ASA level and lipase. Start Protonix BID for excessive ASA ingestion over the last 2-3 days (approx 6.5 gm each day) Pain control: Morphine IV and oxycodone PO PRN. Zofran/Reglan PRN nausea. 09/05 Echo done this am; chemo orders per Dr. Aguayo. Planning to start R-CHOP. Change oxycodone to [place]; heating pack PRN. ASA level was WNL. Lipase neg. Abdominal pain resolved. Hypernatremia resolved.
[2017-09-05] MEDS: POLYETHYL GLYCOL 3350 17gm PACKET PO SCH (08:43)
[2017-09-05] MEDS: Oxycodone *IR* 15 MG TABLET PO PRN (08:46)
[2017-09-05] MEDS: SALINE FLUSH 10ml SYRINGE IV PRN ×4 (08:47→22:44)
[2017-09-05] MEDS ORDERED: ALLOPURINOL 300 MG TABLET PO SCH ×2 (09:00)
[2017-09-05] MEDS ORDERED: LIOTHYRONINE 5 MCG TABLET PO SCH (09:00)
[2017-09-05] MEDS ORDERED: NON-FORMULARY MEDICATION 1 EACH EACH (Acyclovir [Acyclovir] 400 MG) PO SCH (09:00)
[2017-09-05] MEDS: SODIUM BICARBONATE 100 MEQ in D5W 1,000 ML IV SCH (10:04)
[2017-09-05] MEDS ORDERED: METOCLOPRAMIDE 10mg/2ml INJECTION IVP PRN (10:38)
[2017-09-05] MEDS: PredniSONE 20 MG TABLET PO SCH (12:56)
[2017-09-05] MEDS ORDERED: DIPHENHYDRAMINE IVP SCH (13:30)
[2017-09-05] MEDS ORDERED: ACETAMINOPHEN 325 MG TABLET PO SCH (13:30)
[2017-09-05] MEDS ORDERED: NS IVP SCH (13:30)
[2017-09-05] MEDS ORDERED: PALONOSETRON 0.25 MG/5 ML INJECTION IV SCH (13:30)
[2017-09-05] MEDS ORDERED: FOSAPREPITANT IV SCH (14:00)
[2017-09-05] MEDS ORDERED: NS IV SCH ×2 (14:00→14:30)
[2017-09-05] MEDS ORDERED: DEXAMETHASONE INJ 10 MG in NS 50 ML IV SCH (14:00)
[2017-09-05] MEDS ORDERED: RITUXIMAB IV SCH (14:30)
[2017-09-05] MEDS ORDERED: NS FLUSH BAG 500ml IV PRN (14:45)
--- NOTE | 2017-09-05 16:14 | Echocardiogram ---
DATE OF PROCEDURE September 04, 2017 This is a two-dimensional echo with spectral Doppler, color-flow and M-mode. It was obtained in a patient pre-chemotherapy. Left atrial dimension is normal. Left ventricle end-diastolic dimension is normal. Left ventricle wall thickness is normal. LV systolic function is normal with ejection fraction of 69%. Right atrium is normal. Right ventricle is normal. Aortic root dimension is normal. Mitral valve is morphologically normal with trace of mitral regurgitation. Aortic valve is a trileaflet structure with no stenosis or insufficiency. Tricuspid valve shows mild tricuspid regurgitation with mild pulmonary hypertension with estimated pulmonary artery systolic pressure of 38. Pulmonary valve shows trace of pulmonary insufficiency. There is no pericardial effusion. IMPRESSION 1. Normal LV systolic function with ejection fraction of 69%. 2. Trace of mitral regurgitation. 3. Mild tricuspid regurgitation with mild pulmonary hypertension with estimated pulmonary artery systolic pressure of 38. 4. Trace of pulmonary insufficiency. MTDD
[2017-09-05] MEDS: HYDROCODONE/APAP 5mg/325mg TABLET PO PRN ×3 (17:16→23:11)
[2017-09-05] MEDS: NYSTATIN 500,000 units/5 ml ORAL LIQUID PO SCH ×2 (18:07→20:32)
[2017-09-05] MEDS ORDERED: RASBURICASE 1.5 MG IV ONE (18:30)
[2017-09-05] MEDS ORDERED: CYCLOPHOSPHAMIDE IV SCH (18:30)
[2017-09-05] MEDS ORDERED: D5W IV SCH (18:30)
--- NOTE | 2017-09-05 18:37 | Consult Note ---
Oncology HPI - Data of Consult Patient: known to practice within the last 3 years Requesting Physician: Kay Hogan MD Primary Care Provider: Telly Red MD - Consult Narrative Reason for consult: Lymphoma History of present illness: --Summer 2008: Abdominal discomfort with finding of multiple nodes. --01/2009: Surgery scheduled but not accomplished secondary to TIA. --05/25/09: Stage III A Follicular lymphoma Grade II Dx. Dx on mesenteric node biopsy FLIPI intermediate. Wait and watch approach has been management since that time. He has used alternative therapy with high-dose vitamin C. --2011: Node biopsy right posterior ear by Dr. Ogden in [place]. --03/2014: Beginning of fever and chills after flushing of Port-A-Cath. --03/2014: Increasing adenopathy in the parotid area. --09/2014: Night sweats, seven pound weight loss, and increase in abdominal pain and abdominal swelling. --11/01/14: Lymph node biopsy with the finding of follicular lymphoma. It was called Grade 3 at [place], Grade 1 at [facility] and Grade 2 at [facility]. This demonstrates the difficulty in pathology interpretation in this disease. --11/22/14: New Port-A-Cath placed. --03/28/15: First cycle of four cycles of Rituxan. --04/21/15: Completed 4 weekly cycles of Rituxan. --05/26/15: Started Maintenance Rituxan. --06/2015: Rituxan increased to monthly. --08/05/16: Patient saw Dr. Rodriguez for assessment and recommendations. --08/10/16: Hospitalization for chills and placed on IV antibiotics. --08/30/16: Started Magnify clinical trial at [place]. --12/28/16: Rectal bleeding in toilet. --12/31/16: Rectal bleeding on tissue. --01/07/17 Colonoscopy showing internal hemorrhoids. --07/25/17: CT scan showing progressive disease --08/06/17: PET scan showing significant metabolic activity and mesenteric masses --08/13/17: Needle biopsy of mesenteric mass with pathology showing grade 3A follicular lymphoma. Second opinion at [facility] having suggestion of findings of diffuse large cell transformation. --09/04/17: Increased abdominal pain with CT scan showing marked progression of his abdominal lymphadenopathy. 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 While a new biopsy would be wonderful, his underlying disease requires treatment and healing from surgery would delay treatment significantly. Interval History He had steroids yesterday and pain medication. Pain is better today. No nausea or vomiting. Communicated with Dr. Rodriguez about treatment and she has recommended therapy for diffuse large cell lymphoma with R CHOP as I had recommended to the patient. Review of Systems - Constitutional Constitutional: Present: fatigue, lethargy, weakness - EENT Eyes: Absent: loss of vision Nose: Absent: obstruction Additional comments: Swelling left jaw that is stable - Cardiovascular Cardiovascular: Absent: chest pain, palpitations, syncope - Respiratory Respiratory: Absent: cough, dyspnea, hemoptysis - Gastrointestinal Gastrointestinal: Present: abdominal pain, early satiety, nausea. Absent: constipation, diarrhea - Genitourinary Genitourinary: Present: urinary hesitancy. Absent: hematuria - Musculoskeletal Musculoskeletal: Absent: arthralgias, atrophy - Integumentary/Breasts Integumentary: Absent: alopecia, rash - Neurological Neurological: Present: headache(s). 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 no cardiac followup needed. Asthma No Bronchitis No Chronic Obstructive Pulmonary No Disease (COPD) Pneumonia No Pulmonary Edema No Pulmonary Embolism No Sleep Apnea No Tuberculosis No Other Respiratory No Diabetes Mellitus Type 1 No Diabetes Mellitus Type 2 No Gastroesophageal Reflux Yes: occasional Disease Other Hematologic Yes: lymphoma Osteoarthritis No Other Musculoskeletal No Other Infectious Yes: strep in previous port Depression No Medical History Updates: TIA 2008. Follicular non-Hodgkin lymphoma stage III. Common variable immunodeficiency. Basal cell carcinoma - treated. Hypothyroidism. MSSA bacteremia 09/2014. Mild MR, mild-moderate TR, moderate PH , mild [place] Surgical History: This patient has had previous operations and procedures as follows: 1. Removal of wisdom teeth in 1986 or 1987 at [facility] at [place], [place]. 2. Removal of a skin carcinoma at left shoulder in [address] Benítez at his office at [place], [place]. 3. Lymph node biopsy, abdomen with Dr. Cueto. Lymph node biopsy left neck. 3. Small bowel capsule endoscopy study on 01/13/[address] Chance Berger at his office at [place], [place]. Findings were normal. 4. Hand-assisted laparoscopic excision of mesenteric lymph node on 05/25/[address] Cueto at [facility] at [place], [place]. The pathology report diagnosis on the mesenteric lymph node was follicular lymphoma. 5. Bone marrow aspiration and biopsy on 07/14/[address] Cueto at [facility] at [place], [place]. The pathology report showed normocellular marrow. There was no evidence of bone marrow involvement with lymphoma or lymphocytosis. There was no significant dysplasia. There was no metastatic carcinoma. 6. Biopsy of subcutaneous mass at right postauricular area on 03/25/[address] Ogden at [facility] at [place], [place]. The pathology report diagnosis on the biopsy did show follicular lymphoma. 7. Insertion of PowerPort vascular access device on 05/05/[address] Cueto at [facility] at [place], [place]. Postoperative diagnosis was follicular lymphoma. 8. Excision of deep cervical lymph node at right side of neck and removal of PowerPort vascular access device on 11/01/[address] Cueto at [place], [place]. Pathology report diagnosis on the right cervical lymph node was follicular lymphoma. Culture of the catheter tip from the PowerPort vascular access device did grow Staphylococcus aureus. The Staphylococcus aureus was sensitive to all antibiotics. 9. Transesophageal echocardiogram on 11/11/[address] Hui at [facility] at [place], [place]. This transesophageal echocardiogram showed no evidence of vegetations. There was no intracardiac thrombus or mass. The patient had a normal left ventricular systolic function with an ejection fraction of 60%. There was a mild mitral regurgitation. There was mild tricuspid regurgitation. Discharge diagnosis for the hospitalization at [facility] from 11/10/14 to was follicular lymphoma. The patient was admitted to the hospital with abdominal pain due to bulky intraabdominal lymphadenopathy. The patient received treatment with intravenous dexamethasone and intravenous Rituxan during his hospitalization, and the abdominal pain resolved. 10. Implantation of Power Port vascular access device on 11/22/[address] Cueto at [facility] at [place], [place]. Postoperative diagnosis was follicular lymphoma. 11. Basal cell carcinoma to right neck treated with curettage and electrodesiccation in Jul, 2015. 12. Colonoscopy 01/07/17 showing internal hemorrhoids (Dr. Cueto). 13. Bone marrow biopsy on 08/21/16. The patient had other previous serious illnesses as follows: 1. The patient had an episode of mononucleosis in 1995. 2. He had influenza treated with Tamiflu in March,. Family History Updates: Father - of lung cancer at age 54 - Social History Smoking status: Never smoker Substance use type: does not use, marijuana (Very, very remote history >40 years ago) Alcohol intake frequency: former alcohol drinker Household members: spouse, family Current occupational status: employed Current occupation: [employer] at [employer] Medications Medication Instructions Recorded Confirmed Type Liothyronine [Cytomel] 5 mcg PO DAILY #0 10/20/14 09/04/17 History Allopurinol 300 mg PO DAILY #0 08/10/16 09/04/17 History Zovirax (acyclovir) 400 mg tablet 400 mg PO DAILY #0 tab 01/02/17 09/04/17 History Allergies Allergy/AdvReac Type Severity Reaction Status Date / Time levofloxacin Allergy Intermediate Itching Verified 08/13/17 12:32 doxycycline Allergy Mild ITCHY Verified 08/13/17 12:32 Exam Vital signs: Temperature 96.3 F L 09/05/17 16:00 Pulse Rate 64 09/05/17 16:00 Respiratory Rate 14 09/05/17 18:24 Blood Pressure 118/67 09/05/17 16:00 Pulse Oximetry 95 09/05/17 16:00 - Constitutional no acute distress, well developed - Routine HEENT Exam Head: Present: normocephalic Eye: Present: EOMI, PERRL ENT: Present: mucous membranes moist Comments: Mass left jaw just above the mandible 2 cm - Routine Neck Exam Present: supple, lymphadenopathy (small shotty nodes bilaterally) - Routine Respiratory Exam Present: CTA bilaterally. Absent: accessory muscle use - Routine Cardiovascular Exam Present: RRR, no murmur - Routine Abdominal Exam Present: soft, tenderness, distended, mass - Routine Extremities Exam Absent: cyanosis, clubbing, edema - Routine Skin Exam Present: dry, warm - Routine Neurological Exam Present: alert, CN II-XII intact - Routine Psychiatric Exam Present: normal affect Oncology Results - Labs CBC & Chem 7: 09/05/17 04:22 09/05/17 04:22 Labs: Short CBC 09/05/17 Range/Units 04:22 WBC 4.7 (4.5-11.0) T/MM3 Hgb 13.7 (13.5-17.5) GM/DL Hct 38.6 L (41-53) % Plt Count 224 (130-400) T/MM3 BMP 09/05/17 04:22 Sodium 144 Potassium 4.4 Chloride 104 Carbon Dioxide 27 BUN 20.0 Creatinine 0.8 D Glucose 124 H Calcium 9.2 D Liver Function 09/05/17 Range/Units 04:22 Total Bilirubin 0.50 (0.20-1.30) MG/DL AST 19 (17-59) U/L ALT 22 (1-50) U/L Alkaline Phosphatase 84 (38-126) U/L Albumin 4.3 (3.5-5.0) g/dL - Impressions Echocardiogram ejection fraction 69% Assessment and Plan Assessment and Plan: Long history of follicular lymphoma now with a rapidly progressive PET scan highly metabolically active disease most consistent with transformation from follicular lymphoma to diffuse large cell. Admitted last p.m. after steroids and pain is better today however significant disease is present. We'll look at chemotherapy with R CHOP. We'll have to watch closely for tumor lysis. Doses calculated and orders sent to the pharmacy. We'll use rasburicase to also help lower uric acid. Will alkalinize urine with sodium bicarbonate infusion. Disease in the abdomen could be involving bowel and may be associated with bleeding or perforation. This will need to be watched closely during the first cycle of chemotherapy. Recommendations: Chemotherapy with R CHOP Watch for tumor lysis Neulasta starting 24 hours after chemotherapy for support
[2017-09-05] MEDS ORDERED: DOXORUBICIN IVP SCH (19:30)
[2017-09-05] MEDS ORDERED: VINCRISTINE IVP SCH (20:30)
[2017-09-05] MEDS: LIOTHYRONINE 5 MCG TABLET PO SCH (20:31)
[2017-09-05] MEDS: ALLOPURINOL 300 MG TABLET PO SCH (20:31)
[2017-09-06] MEDS ORDERED: SALINE FLUSH 10ml SYRINGE IV PRN (03:12)
[2017-09-06] MEDS: HYDROCODONE/APAP 5mg/325mg TABLET PO PRN ×2 (04:54→18:22)
[2017-09-06] MEDS: SODIUM BICARBONATE 100 MEQ in D5W 1,000 ML IV SCH ×3 (04:54→16:36)
[2017-09-06] MEDS: PANTOPRAZOLE 40 MG TABLET PO SCH (06:41)
[2017-09-06] MEDS: NYSTATIN 500,000 units/5 ml ORAL LIQUID PO SCH ×4 (08:47→20:17)
[2017-09-06] MEDS: SIMETHICONE 125 MG CHEWABLE TABLET PO PRN (08:48)
[2017-09-06] MEDS: POLYETHYL GLYCOL 3350 17gm PACKET PO SCH (10:47)
--- NOTE | 2017-09-06 11:18 | Progress Note ---
Oncology Subjective Nauseated this morning. Feels rough from the chemotherapy. Appetite is decreased. No vomiting. He did have bowel movement this morning but had to strain to have bowel movement. Abdominal pain is improved. Lymph nodes may be slightly smaller Exam Vital signs: Temperature 96.5 F L 09/06/17 07:15 Pulse Rate 63 09/06/17 07:15 Respiratory Rate 16 09/06/17 07:15 Blood Pressure 120/67 09/06/17 07:15 Pulse Oximetry 97 09/06/17 07:15 - Constitutional no acute distress, well nourished - Routine HEENT Exam Head: Present: normocephalic Eye: Present: EOMI, PERRL ENT: Present: mucous membranes moist Throat: other (left lateral mandibular lymph node of 1.5 cm that is smaller) - Routine Neck Exam Present: supple, lymphadenopathy (small bilateral cervical lymph nodes that are also smaller) - Routine Respiratory Exam Present: CTA bilaterally. Absent: accessory muscle use, rales - Routine Cardiovascular Exam Present: RRR, no murmur - Routine Abdominal Exam Present: soft, normoactive bowel sounds (bowel sounds are present but are decreased), distended, mass - Routine Extremities Exam Absent: cyanosis, clubbing, edema - Routine Skin Exam Present: dry, warm - Routine Neurological Exam Present: alert, oriented X3, CN II-XII intact - Routine Psychiatric Exam Present: normal affect Oncology Results - Labs CBC & Chem 7: 09/06/17 04:49 09/06/17 04:49 Labs: Short CBC 09/06/17 Range/Units 04:49 WBC 7.9 D (4.5-11.0) T/MM3 Hgb 13.0 L (13.5-17.5) GM/DL Hct 36.7 L (41-53) % Plt Count 218 (130-400) T/MM3 BMP 09/06/17 04:49 Sodium 141 Potassium 4.1 Chloride 100 Carbon Dioxide 30 BUN 17.0 Creatinine 0.8 Glucose 164 H Calcium 9.3 Liver Function 09/06/17 Range/Units 04:49 Total Bilirubin 0.40 (0.20-1.30) MG/DL AST 16 L (17-59) U/L ALT 19 (1-50) U/L Alkaline Phosphatase 73 (38-126) U/L Albumin 3.9 (3.5-5.0) g/dL Laboratory Tests 09/06/17 09/06/17 04:49 04:49 WBC 7.9 D Hgb 13.0 L Hct 36.7 L Plt Count 218 Creatinine 0.8 Uric Acid 4.0 Total Bilirubin 0.40 AST 16 L ALT 19 Lactate Dehydrogenase 473 Assessment and Plan Assessment and Plan: Long history of follicular lymphoma now with a rapidly progressive PET scan highly metabolically active disease most consistent with transformation from follicular lymphoma to diffuse large cell. Admitted 09/04 after steroids. Had chemotherapy with R CHOP on 09/05/17. Uric acid has been good with allopurinol. Pharmacy did not have Rasburicase to also help lower uric acid. Currently on sodium bicarbonate infusion to alkalinize urine and increase uric acid excretion. Mild nausea. Mild irritation and psychologic changes from steroids. Will add olanzapine to help with the nausea. Uric acid is 4.0. No evidence of tumor lysis syndrome at present. We'll follow labs every 12 hours. Possibly home tomorrow with Neulasta on Friday in the office Disease in the abdomen could be involving bowel and may be associated with bleeding or perforation. This will need to be watched closely during the first cycle of chemotherapy. Recommendations: Chemotherapy with R CHOP, completed on 09/05/17 Watch for tumor lysis Neulasta starting 24 hours after chemotherapy for support. Will probably do as an outpatient on Friday. - Time Spent With Patient Total time spent is greater than 50% in coordination of care (as documented) at patient's floor/unit and/or counseling patient: 25 - 35 minutes
[2017-09-06] MEDS: SALINE FLUSH 10ml SYRINGE IV PRN (11:23)
[2017-09-06] MEDS: OLANZapine 2.5 MG TABLET PO SCH (14:56)
[2017-09-06] MEDS: PredniSONE 20 MG TABLET PO SCH (14:57)
--- NOTE | 2017-09-06 17:35 | Progress Note ---
- Date 09/06/17 Subjective: The patient was seen this afternoon in his room. He states he is feeling better. His abdominal pain has decreased. He was a little constipated this morning and had strained to have a bowel movement. He states at home he gives himself "a coffee enema" every morning. He states he is eating better today. He is drinking without difficulties. He does have some muscle cramping. Objective Vital signs: Temperature 96.5 F L 09/06/17 15:52 Pulse Rate 54 L 09/06/17 15:52 Respiratory Rate 16 09/06/17 15:52 Blood Pressure 126/70 09/06/17 15:52 Pulse Oximetry 96 09/06/17 15:52 Height/Weight/BMI: Height 1.7 m Weight 89.6 kg Body Mass Index 30.0 Comments: GEN-alert, oriented, no acute distress HEENT-sclera anicteric, pupils are equal NECK-supple CV-regular rate and rhythm CHEST-clear to auscultation bilaterally ABD-soft, nontender with positive bowel sounds -no Iniguez EXT-no edema NEURO-no focal deficits SKIN-warm and dry and without rashes Results - Labs CBC & Chem 7: 09/06/17 04:49 09/06/17 15:37 Labs: LDH is normal. Uric acid is 4.5. Calcium 9.0. Phosphorus 2.9. Assessment and Plan Assessment and Plan: Assessment Follicular non-Hodgkin lymphoma stage III with progression to diffuse large B cell lymphoma Abdominal pain Possible ASA toxicity - ruled out [place]-improved off of ASA. 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 Abdominal pain has improved. He is tolerating Allison without difficulties, and states he is not needing it very often. We discussed that he should not take aspirin for pain, especially while on chemotherapy which can lower his platelets. Continue MiraLAX and when necessary Senokot for constipation. Replace potassium orally today. Add magnesium to lab planned for tomorrow morning. Discussed with Dr. Aguayo this morning. If the patient continues to do well and lab is stable tomorrow, will likely dismiss to home with plans for follow-up as an outpatient. DVT Prophylaxis: SCD's GI Prophylaxis: Protonix Resuscitation Status: Full Code - Physician Narrative Narrative: Date: 09/06/17 Time: 1728 Hospital Course Summary Disclaimer: The visit summary below is not to be considered part of the above Progress Note. Hospital Course: 09/04 Admit, observation status under the hospitalist service. Consult Dr. Aguayo - suspect he will need repeated echo since last known was in 2014 prior to beginning chemo. Steroids were given prior to admission. Check ASA level and lipase. Start Protonix BID for excessive ASA ingestion over the last 2-3 days (approx 6.5 gm each day) Pain control: Morphine IV and oxycodone PO PRN. Zofran/Reglan PRN nausea. 09/05 Echo done this am; chemo orders per Dr. Aguayo. Planning to start R-CHOP. Change oxycodone to Allison; heating pack PRN. ASA level was WNL. Lipase neg. Abdominal pain resolved. Hypernatremia resolved.
[2017-09-06] MEDS: ALLOPURINOL 300 MG TABLET PO SCH (20:19)
[2017-09-06] MEDS: LIOTHYRONINE 5 MCG TABLET PO SCH (20:20)
[2017-09-06] MEDS: ACYCLOVIR 200 MG CAPSULE PO SCH (20:20)
[2017-09-07 00:28] VITALS: TEMP 97.1
[2017-09-07] MEDS: SODIUM BICARBONATE 100 MEQ in D5W 1,000 ML IV SCH ×2 (03:30→10:20)
[2017-09-07] MEDS: HYDROCODONE/APAP 5mg/325mg TABLET PO PRN ×2 (04:47→13:05)
[2017-09-07] MEDS: PANTOPRAZOLE 40 MG TABLET PO SCH (06:00)
[2017-09-07 07:40] VITALS: BP 128/72; PULSE 60; O2SAT 97
[2017-09-07] MEDS: SALINE FLUSH 10ml SYRINGE IV PRN ×2 (08:37→15:32)
[2017-09-07] MEDS: NYSTATIN 500,000 units/5 ml ORAL LIQUID PO SCH ×2 (08:41→13:07)
[2017-09-07] MEDS: OLANZapine 2.5 MG TABLET PO SCH (08:41)
[2017-09-07] MEDS: SIMETHICONE 125 MG CHEWABLE TABLET PO PRN ×2 (08:42→15:07)
[2017-09-07] MEDS: POLYETHYL GLYCOL 3350 17gm PACKET PO SCH (10:20)
[2017-09-07] MEDS ORDERED: PEGFILGRASTIM 6 MG/0.6 ML INJECTION SQ ONE (12:29)
--- NOTE | 2017-09-07 12:34 | Progress Note ---
Oncology Subjective Complaints of headache. No nausea. No fevers or chills. Abdominal pain is better. Tolerating the chemotherapy very fairly well. Side effects of the steroids. Hiccups. Review of systems: Gen.: Negative for fever or chills, positive malaise Eyes: Negative eye discharge, eye pain ENT: Negative for nosebleeds, mouth sores Lymph: Positive enlarged lymph nodes, no night sweats Respiratory: Negative for cough, shortness of breath, hemoptysis, Cardiac: Negative for chest pain, palpitations, or swelling GI: Negative for nausea, negative for vomiting, negative for diarrhea positive for pain. No constipation Genitourinary: No urgency, no dysuria, no hematuria Musculoskeletal: Positive for weakness, no joint pain Neurologic: Positive for headache, began after nausea medicine, negative for focal weakness, negative for numbness Exam Vital signs: Temperature 97.1 F 09/07/17 07:39 Pulse Rate 60 09/07/17 07:39 Respiratory Rate 14 09/07/17 10:40 Blood Pressure 128/72 09/07/17 07:39 Pulse Oximetry 97 09/07/17 07:39 - Constitutional no acute distress, well developed - Routine HEENT Exam Head: Present: normocephalic Eye: Present: EOMI ENT: Present: mucous membranes moist Throat: other (left lymph node lateral to the mandible is smaller now 1 cm) - Routine Neck Exam Present: supple - Routine Respiratory Exam Present: CTA bilaterally. Absent: dyspnea - Routine Cardiovascular Exam Present: RRR, no murmur - Routine Abdominal Exam Present: soft, normoactive bowel sounds (present but slightly hypoactive), tenderness (very mild tenderness), distended (less distended than yesterday.), mass (masses appear smaller) - Routine Extremities Exam Absent: cyanosis, clubbing, edema - Routine Skin Exam Present: dry, warm - Routine Neurological Exam Present: alert, CN II-XII intact - Routine Psychiatric Exam Present: normal affect, anxious (mild anxiety with the steroids) Oncology Results - Labs CBC & Chem 7: 09/07/17 04:42 09/07/17 04:42 Labs: Short CBC 09/07/17 Range/Units 04:42 WBC 4.0 L D (4.5-11.0) T/MM3 Hgb 12.6 L (13.5-17.5) GM/DL Hct 35.9 L (41-53) % Plt Count 190 (130-400) T/MM3 BMP 09/06/17 09/07/17 15:37 04:42 Sodium 141 145 Potassium 3.3 L D 4.0 D Chloride 99 105 D Carbon Dioxide 30 31 H BUN 18.0 18.0 Creatinine 0.8 0.9 Glucose 155 H 124 H Calcium 9.0 8.8 Liver Function 09/07/17 Range/Units 04:42 Total Bilirubin 0.30 (0.20-1.30) MG/DL AST 14 L (17-59) U/L ALT 16 (1-50) U/L Alkaline Phosphatase 71 (38-126) U/L Albumin 3.6 (3.5-5.0) g/dL - Impressions Laboratory Tests 09/06/17 09/07/17 09/07/17 15:37 04:42 04:42 WBC 4.0 L D Plt Count 190 Neut % (Auto) 74.4 H Neut # (Auto) 3.0 Creatinine 0.8 0.9 Uric Acid 4.7 Lactate Dehydrogenase 426 Assessment and Plan Assessment and Plan: Long history of follicular lymphoma now with a rapidly progressive PET scan highly metabolically active disease most consistent with transformation from follicular lymphoma to diffuse large cell. Admitted 09/04 after steroids. Had chemotherapy with R CHOP on 09/05/17. Uric acid has been good with allopurinol. Pharmacy did not have Rasburicase to also help lower uric acid. Currently on sodium bicarbonate infusion to alkalinize urine and increase uric acid excretion. Mild nausea. Mild irritation and psychologic changes from steroids. Will add olanzapine to help with the nausea. Uric acid is 4.0. No evidence of tumor lysis syndrome at present. We'll follow labs every 12 hours. 09/07/17: Mild headache no evidence of tumor lysis. Uric acid is 4.7 today. Will send home to follow-up on Friday with lab at the office and then I will see him with lab on Friday. We'll give Neulasta today. Disease in the abdomen could be involving bowel and may be associated with bleeding or perforation. This will need to be watched closely during the first cycle of chemotherapy. Recommendations: Chemotherapy with R CHOP, completed on 09/05/17 no evidence of tumor lysis. Neulasta starting 24 hours after chemotherapy for support. Neulasta today. It is been 36 hour since completion of chemotherapy. We'll see him the office for lab tomorrow. Prescription sent to [facility]: Prednisone 20 mg tablets 5 on 09/08 and 5 on 09/09 #10 tablets Pantoprazole 40 mg 1 daily #30 with 2 refills Ondansetron 8 mg 1 every 8 hours as needed for nausea and vomiting #30 with 2 refills - Time Spent With Patient Total time spent is greater than 50% in coordination of care (as documented) at patient's floor/unit and/or counseling patient: 25 - 35 minutes
[2017-09-07] MEDS: PredniSONE 20 MG TABLET PO SCH (13:05)
[2017-09-07] MEDS ORDERED: LORazepam 0.5 MG TABLET PO PRN (13:25)
--- NOTE | 2017-09-07 14:19 | Discharge Summary ---
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 Hypernatremia, POA - resolved Mild hypokalemia TIA 2008 Common variable immunodeficiency Basal cell carcinoma - treated Hypothyroidism MSSA bacteremia 09/2014 Mild MR, mild-moderate TR, moderate PH, mild MD - Procedures Procedures: Overnight oximetry on room air-the patient had less than 60 seconds of desaturation less than 89% during the whole night -He does NOT need home O2 at night - Laboratory Labs: 09/07/17 04:42 09/07/17 04:42 Laboratory Tests 09/04/17 09/07/17 10:00 04:42 Uric Acid 4.7 Calcium 8.8 Phosphorus 3.4 Magnesium 2.2 Total Bilirubin 0.30 AST 14 L ALT 16 Alkaline Phosphatase 71 Lactate Dehydrogenase 426 Total Protein 5.6 L Albumin 3.6 Globulin 2.0 L Albumin/Globulin Ratio 1.8 Lipase 79 Salicylates 12.6 - Radiology Radiology: Date of Exam: 09/04/17 Type of Exam(s): US echo doppler complete DATE OF PROCEDURE September 04, 2017 This is a two-dimensional echo with spectral Doppler, color-flow and M-mode. It was obtained in a patient pre-chemotherapy. Left atrial dimension is normal. Left ventricle end-diastolic dimension is normal. Left ventricle wall thickness is normal. LV systolic function is normal with ejection fraction of 69%. Right atrium is normal. Right ventricle is normal. Aortic root dimension is normal. Mitral valve is morphologically normal with trace of mitral regurgitation. Aortic valve is a trileaflet structure with no stenosis or insufficiency. Tricuspid valve shows mild tricuspid regurgitation with mild pulmonary hypertension with estimated pulmonary artery systolic pressure of 38. Pulmonary valve shows trace of pulmonary insufficiency. There is no pericardial effusion. IMPRESSION 1. Normal LV systolic function with ejection fraction of 69%. 2. Trace of mitral regurgitation. 3. Mild tricuspid regurgitation with mild pulmonary hypertension with estimated pulmonary artery systolic pressure of 38. 4. Trace of pulmonary insufficiency. History of Present Illness HPI: Sukhwinder Brown is a 56 y/o male with a history of stage III follicular lymphoma with recent progression of symptoms. He was diagnosed in 2009, and responded well to 4 cycles of Rituxan followed by maintenance therapy. He began a clinical trial with lenalidomide + Rituxan in August, after progression was identified, but this was discontinued in June, due to CT evidence of progressive disease. For the last couple of weeks, he's been having increasing abdominal pain, bloating, gassiness, indigestion, and anorexia. His added that he hasn't been drinking enough fluids. The pain started as mild but for the last week it has been more severe. It's most pronounced in his RUQ but his entire abdomen is painful and he's also developed pain in his back. He's tried TUMS, Gas-X, and ASA to help his pain. In fact, for the last 2-3 days he's been taking about 20 ASA 325 mg tablets per day. He has had worsening tinnitus compared to normal, and has a sensation that his ears are popping. He has a runny nose which he thinks might be allergies. He has chronic lymph node swelling in his neck and submandibular glands. He denies vertigo, dizziness, focal weakness, chest pain, dyspnea, cough/congestion, n/v/d, hematochezia or melena, abnormal bruising/bleeding, dysuria or urinary frequency, leg swelling, joint/muscle pain. He saw Dr. Aguayo on 09/04/[address] scan of his chest/abdomen/pelvis. The CT showed Worsening metastatic disease with enlarging posterior mediastinal, retroperitoneal and mesenteric lymphadenopathy. WBC was 4.1, hgb 13.8, plt 218; CMP unremarkable except for mild hypernatremia (145). It was decided that with his increasing pain and progression of symptoms the patient should be admitted to the hospital for pain management and initiation of R-CHOP. Objective Vital signs: Temperature 97.1 F 09/07/17 07:39 Pulse Rate 60 09/07/17 07:39 Respiratory Rate 16 09/07/17 13:05 Blood Pressure 128/72 09/07/17 07:39 Pulse Oximetry 97 09/07/17 07:39 Height/Weight/BMI: Height 1.7 m Weight 89.7 kg Body Mass Index 30.0 Hospital Course This is a general summary of the patient's hospital course. For more details refer to the complete medical record. Hospital course: 09/04 Admit, observation status under the hospitalist service. Consult Dr. Aguayo - suspect he will need repeated echo since last known was in 2014 prior to beginning chemo. Steroids were given prior to admission. Check ASA level and lipase. Start Protonix BID for excessive ASA ingestion over the last 2-3 days (approx 6.5 gm each day) Pain control: Morphine IV and oxycodone PO PRN. Zofran/Reglan PRN nausea. 09/05 Echo done this am; chemo orders per Dr. Aguayo. Planning to start R-CHOP. Change oxycodone to [place]; heating pack PRN. ASA level was WNL. Lipase neg. Abdominal pain resolved. Hypernatremia resolved. 09/06/2017 Overall, the patient is doing well. Abdominal pain has improved. He is tolerating [place] without difficulties, and states he is not needing it very often. We discussed that he should not take aspirin for pain, especially while on chemotherapy which can lower his platelets. Continue MiraLAX and when necessary Senokot for constipation. Replace potassium orally today. Add magnesium to lab planned for tomorrow morning. Discussed with Dr. Aguayo this morning. If the patient continues to do well and lab is stable tomorrow, will likely dismiss to home with plans for follow-up as an outpatient. 09/07/2017 Patient continues to do well after initiation of chemotherapy. He was maintained on IV fluids and monitored for tumor lysis syndrome. Uric acid has remained in the normal range. Electrolytes have been essentially normal. Overall he has done quite well. His abdominal pain has decreased. MiraLAX has helped with constipation. [place] has helped with abdominal discomfort. He had an overnight oximetry on room air and did quite well and does not require oxygen at night. On exam today he is alert and oriented and in no acute distress. Chest is clear to auscultation. Cardiovascular reveals a regular rate and rhythm. Abdomen is soft and minimally tender. Bowel sounds are normal. Extremities are free of edema. Skin is warm and dry and without rashes. He appears stable for dismissal to home today. Dr. Aguayo is in agreement with discharge. The patient did receive a dose of Neulasta today prior to discharge. He will follow-up in Dr. Aguayo's office tomorrow for lab work. Dr. Aguayo did give the patient a prescription for Ativan as needed for anxiety. I did discuss with the patient and his that he should not take the Ativan and [place] together. He should wait at least 6 hours in between taking an Ativan and taking [place] to prevent oversedation. I also discussed with him that he should not drink alcohol while taking Ativan or Greenview. Resuscitation Status: Full Code Discharge Plan - Discharge Disposition Discharge Date: 09/07/17 Disposition: Discharged Home, Self-Care *Condition: Stable Reason For Visit (Visit label in EMR): abd pain, lymphoma - Discharge Medications Medication Comments: Dr. Aguayo sent prescriptions for prednisone, pantoprazole, and ondansetron to [facility] *Discharge Medications: New PredniSONE [Deltasone 20 mg] 20 mg PO WB 2 Days #10 tab Ondansetron [Ondansetron Odt] 8 mg PO Q8H PRN #30 tab.rapdis PRN Reason: Nausea LORazepam [Ativan] 0.5 mg PO O PRN #15 tab PRN Reason: Anxiety Hydrocodone/APAP 5/325 [[place] 5/325] 1 - 2 tab PO Q6H PRN #30 tab PRN Reason: Pain Pantoprazole Tab [Protonix Tab] 1 tab PO ACB #30 tab Peg 3350 238 G Bottle [Miralax] 17 gm PO DAILY #1 bottle Continue Liothyronine [Cytomel] 5 mcg PO DAILY #0 Allopurinol 300 mg PO DAILY #0 Zovirax (acyclovir) 400 mg tablet 400 mg PO DAILY #0 tab - Discharge Packet/Instructions *Diet: Diet as tolerated *Activity: Light activity as tolerated. No driving if you are taking [place] or Ativan *Pain Management/Treatment: [place] as needed for pain. *Wound Care: Not applicable Additional Instructions: Follow-up in Dr. Aguayo's office on Friday, September 08 for lab work. *Expected Signs/Symptoms: Abdominal pain and fatigue should improve. He may have mild nausea secondary to chemotherapy. You may feel jittery or have difficulty sleeping secondary to prednisone. This should improve when you go off of prednisone. *Notify Physician if: Seek medical attention if you have fevers, lightheadedness , shortness of breath, severe diarrhea, nausea and vomiting that is not improved with medication, abnormal bleeding, or any other significant concerns. *During Business Hours Contact: Dr. Aguayo's office *After Business Hours Contact: Called [facility] concrete buster operator [phone] Aguayo paged *Pending Lab/Results: No Pending Lab - Referrals/Follow Up *Referrals/Follow Up: Hernandez Aguayo MD [Physician] - 1 Day (for lab) - Patient Handouts - Dismissal Complete Discharge Instructions are:: Complete Physician Narrative - Narrative Attestation Narrative: Date: 09/07/17 Time: [id number]
[2017-09-07 15:07] VITALS: RESP 16
== END 2017-09-07 15:15 | disposition home or self-care (01) ==
LOC: MED → SUATTDRO 15:29
PROVIDERS: ADMIT Internal Medicine; ATTEND Internal Medicine